=== PATIENT | female | born 1930 | race Caucasian/White ===

== ENCOUNTER 2016-09-03 06:01 | Inpatient (IN) | payer OTHER, MEDICARE ==
[~2016-09-03] VITALS: Ht 160 cm; Wt 101.2 kg
[2016-09-03] VITALS (16 sets, daily range): BP systolic 106–189; BP diastolic 52–79; PULSE 64–112; RESP 18–28; TEMP 97.6–99.5; O2SAT 92–100
[2016-09-03] MEDS ORDERED: GLIP-158 PO (06:23)
[2016-09-03] MEDS ORDERED: LOVA20TA PO (06:23)
[2016-09-03] MEDS ORDERED: GABA100C4 PO (06:23)
[2016-09-03] MEDS ORDERED: VERA120T3 PO (06:23)
[2016-09-03] MEDS ORDERED: METO50TA PO (06:23)
[2016-09-03] MEDS ORDERED: CAPT50TA PO (06:23)
[2016-09-03] MEDS ORDERED: OMEP20TA PO (06:23)
[2016-09-03] MEDS ORDERED: METF500T PO (06:23)
[2016-09-03] MEDS ORDERED: ONDANSETRON HCL 4 MG/2 ML VIAL IV PUSH ONE (06:30)
[2016-09-03] MEDS ORDERED: SODIUM CHLORIDE 0.9% FLUSH 5 ML FLUSH IVF PRN (06:30)
[2016-09-03] MEDS ORDERED: MORPHINE SULFATE 8 MG/ML INJ IV PUSH ONE (06:30)
--- NOTE | 2016-09-03 06:37 | PD ---
HPI Chief Complaint: Pain: Acute or Chronic Time Seen by Provider: 06:26 Travel History International Travel<30 days: No Contact w/Intl Traveler<30days: No Traveled to known affect area: No History of Present Illness HPI Patient is an 86-year-old female with a history of chronic low back pain presents to emergency department today with acute on chronic low back pain for the past 2 days. Patient states that she has been having severe pain and never had pain quite this severe in the past. Also endorses a history of nausea without vomiting and no belly pain. Patient has not tried anything prior to arrival denies any fever denies any chest pain denies any diarrhea. Denies any saddle anesthesia or leg weakness. She states she is able to walk when she is not having pain but hasn't walked in a day. She also states that she has pee on herself once or twice but can feel the urine and feels when she needs to pee. PFSH Past Medical History High Cholesterol: Yes Diabetes: Yes Patient Takes Glucophage: No GERD: Yes Hypertension: Yes Tetanus Vaccination: Unknown Influenza Vaccination: No ?: Not Menopausal: No : 2 Para: 2 Social History Alcohol Use: No Tobacco Use: No Substance Use: No Allergies-Medications (Allergen,Severity, Reaction): Coded Allergies: No Known Allergies (Unverified , 09/03/16) Reported Meds & Prescriptions Reported Meds & Active Scripts Active Reported Gabapentin 100 Mg Cap 100 Mg PO HS Omeprazole 20 Mg Tab 20 Mg PO DAILY Glipizide XL (Glipizide) 2.5 Mg Wilver 2.5 Mg PO DAILY Take with breakfast or first main meal of the day Lovastatin 20 Mg Tab 20 Mg PO DAILY Captopril 50 Mg Tab 50 Mg PO TIDAC Take 1 hour before meals. Verapamil (Verapamil HCl) 120 Mg Tab 240 Mg PO BID Metoprolol Tartrate 50 Mg Tab 50 Mg PO BID Metformin (Metformin HCl) 500 Mg Tab 500 Mg PO BIDPC With meals Review of Systems Except as stated in HPI: all other systems reviewed are Neg Physical Exam Narrative GENERAL: Well-developed, obese appears in moderate pain. SKIN: Warm and dry. HEAD: Atraumatic. Normocephalic. EYES: Pupils equal and round. No scleral icterus. No injection or drainage. ENT: No nasal bleeding or discharge. Mucous membranes pink and moist. NECK: Trachea midline. No JVD. CARDIOVASCULAR: Regular rate and rhythm. No murmur appreciated. RESPIRATORY: No accessory muscle use. Clear to auscultation. Breath sounds equal bilaterally. GASTROINTESTINAL: Abdomen soft, non-tender, nondistended. Hepatic and splenic margins not palpable. MUSCULOSKELETAL: No obvious deformities. No clubbing. No cyanosis. No edema. Able to dorsiflex and plantarflex against resistance. No midline tenderness of her back, she does have some tenderness of bilateral SI joints. NEUROLOGICAL: Awake and alert. No obvious cranial nerve deficits. Motor grossly within normal limits. Normal speech. PSYCHIATRIC: Appropriate mood and affect; insight and judgment normal. Data Data Last Documented VS Vital Signs Date Time Temp Pulse Resp B/P Pulse Ox O2 Delivery O2 Flow Rate FiO2 09/03/16 09:00 105 20 168/75 95 Nasal Cannula 2 09/03/16 06:12 99.5 Orders Electrocardiogram (09/03/16 06:26) Ckmb (Isoenzyme) Profile (09/03/16 06:26) Complete Blood Count With Diff (09/03/16 06:26) Comprehensive Metabolic Panel (09/03/16 06:26) Magnesium (Mg) (09/03/16 06:26) Prothrombin Time / Inr (Pt) (09/03/16 06:26) Act Partial Throm Time (Ptt) (09/03/16 06:26) Troponin I (09/03/16 06:26) Chest, Single Ap (09/03/16 06:26) Ecg Monitoring (09/03/16 06:26) Bilateral Bp Monitoring (09/03/16 06:26) Iv Access Insert/Monitor (09/03/16 06:26) Oximetry (09/03/16 06:26) Oxygen Administration (09/03/16 06:26) Sodium Chloride 0.9% Flush (Ns Flush) (09/03/16 06:30) Cta Thor Abd Aorta W Iv C W3d (09/03/16 ) Ct Lumb Spine W/O Contrast (09/03/16 ) Morphine Inj (Morphine Inj) (09/03/16 06:30) Ondansetron Inj (Zofran Inj) (09/03/16 06:30) Urinalysis - C+S If Indicated (09/03/16 07:11) ^ Straight Catheter (09/03/16 07:11) CKMB (09/03/16 06:25) CKMB% (09/03/16 06:25) Cath For Specimen (09/03/16 07:40) Iohexol 350 Inj (Omnipaque 350 Inj) (09/03/16 08:11) Vancomycin Inj (Vancomycin Inj) (09/03/16 08:30) Piperacil-Tazo 3.375 Gm Premix (Zosyn 3. (09/03/16 08:30) Piperacil-Tazo 4.5 Gm Premix (Zosyn 4.5 (09/03/16 08:30) Blood Culture (09/03/16 08:31) Urine Culture (09/03/16 08:00) Sodium Chlor 0.9% 1000 Ml Inj (Ns 1000 M (09/03/16 09:00) Lipase (09/03/16 08:48) Admit Order (Ed Use Only) (09/03/16 09:26) Us Abdomen Liver (09/03/16 ) Mri T Spine W & W/O Contrast (09/03/16 ) Mri L Spine W&W/O Contrast (09/03/16 ) Labs Laboratory Tests Test 09/03/16 09/03/16 06:25 08:00 White Blood Count 15.3 TH/MM3 Red Blood Count 5.83 MIL/MM3 Hemoglobin 15.1 GM/DL Hematocrit 45.8 % Mean Corpuscular Volume 78.5 FL Mean Corpuscular Hemoglobin 25.9 PG Mean Corpuscular Hemoglobin 33.0 % Concent Red Cell Distribution Width 19.3 % Platelet Count 148 TH/MM3 Mean Platelet Volume 9.6 FL Neutrophils (%) (Auto) 75.9 % Lymphocytes (%) (Auto) 18.2 % Monocytes (%) (Auto) 5.6 % Eosinophils (%) (Auto) 0.1 % Basophils (%) (Auto) 0.2 % Neutrophils # (Auto) 11.6 TH/MM3 Lymphocytes # (Auto) 2.8 TH/MM3 Monocytes # (Auto) 0.9 TH/MM3 Eosinophils # (Auto) 0.0 TH/MM3 Basophils # (Auto) 0.0 TH/MM3 CBC Comment AUTO DIFF Differential Total Cells 100 Counted Neutrophils % (Manual) 52 % Band Neutrophils % 21 % Lymphocytes % 22 % Monocytes % 4 % Neutrophils # (Manual) 11.3 TH/MM3 Metamyelocytes 1 % Nucleated Red Blood Cells 2 /100 WBC Differential Comment FINAL DIFF MANUAL Platelet Estimate NORMAL Platelet Morphology Comment NORMAL Ovalocytes Acanthocytes OCC Prothrombin Time 15.4 SEC Prothromb Time International 1.4 RATIO Ratio Activated Partial 28.5 SEC Thromboplast Time Sodium Level 138 MEQ/L Potassium Level 4.6 MEQ/L Chloride Level 104 MEQ/L Carbon Dioxide Level 17.7 MEQ/L Anion Gap 16 MEQ/L Blood Urea Nitrogen 25 MG/DL Creatinine 0.72 MG/DL Random Glucose 77 MG/DL Calcium Level 9.9 MG/DL Magnesium Level 2.1 MG/DL Total Bilirubin 1.1 MG/DL Aspartate Amino Transf 1489 U/L (AST/SGOT) Alanine Aminotransferase 544 U/L (ALT/SGPT) Alkaline Phosphatase 798 U/L Total Creatine Kinase 1697 U/L Creatine Kinase MB 2.6 NG/ML Creatine Kinase MB % 0.2 % Troponin I LESS THAN 0.02 NG/ML Total Protein 6.5 GM/DL Albumin 2.5 GM/DL Lipase 292 U/L Urine Color DARK-YELLOW Urine Turbidity HAZY Urine pH 5.5 Urine Specific [place] 1.023 Urine Protein TRACE mg/dL Urine Glucose (UA) NEG mg/dL Urine Ketones 10 mg/dL Urine Occult Blood MOD Urine Nitrite NEG Urine Bilirubin SMALL Urine Urobilinogen 8.0 MG/DL Urine Leukocyte Esterase NEG Urine RBC 2 /hpf Urine WBC 4 /hpf Urine Squamous Epithelial 1 /hpf Cells Urine Transitional Epithelial 1 /hpf Cells Urine Bacteria MANY /hpf Urine Hyaline Casts 17 /lpf Urine Mucus MOD /lpf Microscopic Urinalysis Comment CATH-CULTURE IND [facility] Medical Decision Making Medical Screen Exam Complete: Yes Emergency Medical Condition: Yes Differential Diagnosis Sacroiliitis, dissection seems possible ACS seems possible, pathologic fracture , cauda equina seems unlikely urinary tract infection. Narrative Course Patient appears well however she does have some small amount of diaphoresis on her neck only. She has not been in our emergency department for her back pain before. I have ordered CAT scans as well as laboratory workup on her. Heart rate is minimally elevated at this time otherwise her blood pressure stable. She is quite kind and comfortable. Medications have been ordered for her pain. Patient workup started in the emergency department, will be discussed with Dr. Walker the oncoming provider at to follow the workup and disposition appropriately. Dileep Holden MD Sep 03, 2016 06:37
--- NOTE | 2016-09-03 06:51 | RADRPT ---
EXAM DATE/TIME: 09/03/2016 06:37 [facility] COMPARISON: No previous studies available for comparison. INDICATIONS : Chest pains. MEDICAL HISTORY : Hypertension. Diabetes mellitus type II. SURGICAL HISTORY : None. ENCOUNTER: Initial ACUITY: 1 day PAIN SCORE: 4/10 LOCATION: Bilateral chest FINDINGS: A single view of the chest demonstrates the lungs to be symmetrically aerated without evidence of mas s, infiltrate or effusion. Cardiomegaly. The cardiomediastinal contours are unremarkable. Osseous s tructures are intact. CONCLUSION: Cardiomegaly with clear lungs. Joey Chavez MD on September 03, 2016 at 6:50 Board Certified Radiologist. This report was verified electronically.
[2016-09-03 06:52] LABS: AUTOMATED NEUTROPHIL # 11.6 TH/MM3 (1.8-7.7); BASOPHIL % 0.2 % (0.0-2.0); EOSINOPHIL % 0.1 % (0.0-4.0); HEMATOCRIT 45.8 % (35.0-46.0); LYMPH % 18.2 % (9.0-44.0); LYMPHOCYTE # 2.8 TH/MM3 (1.0-4.8); MEAN CELL VOLUME 78.5 FL (80.0-100.0); MEAN CORPUSCULAR HEMOGLOBIN 25.9 PG (27.0-34.0); MONO % 5.6 % (0.0-8.0); NEUT % 75.9 % (16.0-70.0); PLATELET COUNT 148 TH/MM3 (150-450); RED BLOOD COUNT 5.83 MIL/MM3 (4.00-5.30); RED CELL DISTRIBUTION WIDTH 19.3 % (11.6-17.2); WHITE BLOOD COUNT 15.3 TH/MM3 (4.0-11.0)
[2016-09-03 07:02] LABS: APTT (PATIENT) 28.5 SEC (24.3-30.1); INTERNATIONAL NORMALIZED RATIO 1.4 RATIO; PROTHROMBIN TIME - PATIENT 15.4 SEC (9.8-11.6)
[2016-09-03 07:08] LABS: HEMO FLAGS AUTO DIFF
[2016-09-03 07:15] LABS: ALT (GPT) 544 U/L (10-53); ANION GAP 16 MEQ/L (5-15); BICARBONATE 17.7 MEQ/L (21.0-32.0); BLOOD UREA NITROGEN 25 MG/DL (7-18); CHLORIDE 104 MEQ/L (98-107); MAGNESIUM 2.1 MG/DL (1.5-2.5); POTASSIUM 4.6 MEQ/L (3.5-5.1); SODIUM (NA) 138 MEQ/L (136-145)
[2016-09-03 07:28] LABS: ALKALINE PHOSPHATASE 798 U/L (45-117); AST (GOT) 1489 U/L (15-37); CREATINE KINASE 1697 U/L (26-192); TOTAL BILIRUBIN ADULT 1.1 MG/DL (0.2-1.0)
[2016-09-03 07:40] LABS: CKMB 2.6 NG/ML (0.5-3.6)
[2016-09-03 07:42] LABS: BANDS 21 % (0-6); CORRECTED NUCLEATED RBC 2 /100 WBC (0-0); METAMYELOCYTES 1 % (0-1); NEUTROPHIL # MANUAL DIFF 11.3 TH/MM3 (1.8-7.7); POLYS (SEG NEUTROPHILS) 52 % (16-70); WBC DIFF SAMPLE 100
[2016-09-03 07:43] LABS: ACANTHOCYTES OCC (NORMAL)
[2016-09-03 07:44] LABS: PLATELET ESTIMATE SMEAR NORMAL (NORMAL); PLATELET MORPHOLOGY NORMAL (NORMAL); SCAN/DIFF FINAL DIFF MANUAL
[2016-09-03] MEDS ORDERED: IOHEXOL 350 MG/ML 10 ML VIAL (for RAD DIAG) IV ONE (08:11)
[2016-09-03] MEDS ORDERED: VANCOMYCIN INJ 1,500 MG in SODIUM CHLORID 0.9% 500 ML INJ 500 ML IV ONE (08:30)
[2016-09-03] MEDS ORDERED: PIPERACIL-TAZO 3.375 GM PREMIX 50 ML IV ONE (08:30)
[2016-09-03] MEDS ORDERED: PIPERACIL-TAZO 4.5 GM PREMIX 100 ML IV ONE (08:30)
[2016-09-03 08:32] LABS: BACTERIA, URINE MANY /hpf; BLOOD, URINE MOD (NEG); COMMENT (UR) CATH-CULTURE IND; CULTURE IF INDICATED CATH CULTURE IND; GLUCOSE,URINE NEG (NEG); HYALINE CAST, URINE 17 /lpf (RARE); KETONE, URINE 10 mg/dL (NEG); MUCUS URINE MOD /lpf (OCC); NITRITE,URINE NEG (NEG); PH, URINE 5.5 (5.0-8.5); SQUAMOUS EPITHELIAL CELL URINE 1 /hpf (0-5); TRANSITIONAL EPI CELLS, URINE 1 /hpf; URINE COLOR DARK-YELLOW (YELLW/STRAW)
--- NOTE | 2016-09-03 08:38 | RADRPT ---
EXAM DATE/TIME: 09/03/2016 08:07 [facility] COMPARISON: No previous studies available for comparison. INDICATIONS : Acute low back pain with history of chronic low back pain. RADIATION DOSE: CTDIvol (mGy) ; Reconstructed from previous dataset MEDICAL HISTORY : Hypertension. Diabetes SURGICAL HISTORY : None. ENCOUNTER: Initial ACUITY: 2 days PAIN SCALE: 7/10 LOCATION: Bilateral low back TECHNIQUE: Volumetric scanning of the lumbar spine was performed. Multiplanar reconstructions in the sagittal, coronal and oblique axial planes were performed. Using automated exposure control and adjustment of the mA and/or kV according to patient size, radiation dose was kept as low as reasonably achievable t o obtain optimal diagnostic quality images. FINDINGS: VERTEBRAE: Normal vertebral body height. No fracture or compression deformity is identified. Small implant osteo phytes are present anteriorly at multiple levels. ALIGNMENT: No anterolisthesis or retrolisthesis. T12-L1: There is a mild diffuse disc bulge. No spinal canal stenosis or neural foraminal narrowing is appreci ated. L1-L2: There is a mild diffuse disc bulge. No spinal canal stenosis or neural foraminal narrowing is appreci ated. L2-L3: There is a mild diffuse disc bulge with mild facet hypertrophy. No spinal canal stenosis or significa nt neural foraminal narrowing is visualized. L3-L4: There is decreased disc height with a moderate sized diffuse disc bulge and mild facet hypertrophy. T he lateral recesses are effaced. No significant spinal canal stenosis is appreciated. There is mild r ight neural foraminal narrowing. L4-L5: There is mild decreased disc height with a diffuse disc bulge with partially mineralized disc bulge o n the left. Lateral recesses are effaced. There is mild facet hypertrophy. No spinal canal stenosis i s present. There is mild narrowing of neural foramina bilaterally. L5-S1: Decreased disc height with a diffuse disc bulge and moderate facet hypertrophy. No spinal canal steno sis is present. There is mild neural foraminal narrowing bilaterally.Please refer to CTA examination for description of the surrounding findings. CONCLUSION: Mild multilevel degenerative disc disease throughout the lumbar spine, as above. No spinal canal sten osis is identified. Also, no fracture is seen. There are is of mild neural foraminal narrowing. Ac Fermin MD on September 03, 2016 at 8:32 Board Certified Radiologist. This report was verified electronically.
--- NOTE | 2016-09-03 08:59 | RADRPT ---
EXAM DATE/TIME: 09/03/2016 08:07 [facility] COMPARISON: No previous studies available for comparison. INDICATIONS : Acute low back pain with history of chronic low back pain. IV CONTRAST: 99 cc Omnipaque 350 (iohexol) IV RADIATION DOSE: 17.01 CTDIvol (mGy) MEDICAL HISTORY : Hypertension. Diabetes SURGICAL HISTORY : None. ENCOUNTER: Initial ACUITY: 2 days PAIN SCALE: 7/10 LOCATION: Bilateral low back TECHNIQUE: Volumetric scanning was performed using a multi-row detector CT scanner. The data was post processed with a variety of visualization algorithms including full volume maximum intensity projection, multi -planar sliding thin slab reformation, curved planar reformation, and surface rendering techniques. Using automated exposure control and adjustment of the mA and/or kV according to patient size, radiat ion dose was kept as low as reasonably achievable to obtain optimal diagnostic quality images. FINDINGS: LUNGS: There is a small right pleural effusion with associated compressive atelectasis. No pneumothorax is p resent. MEDIASTINUM: There is a single mildly enlarged prevascular lymph node measuring 10 mm located anterior to the asce nding aorta. No other lymphadenopathy is present. The thyroid gland is enlarged with both lobes exten ding into the superior mediastinum and encasing and partially narrowing the trachea. ABDOMEN: Liver is very heterogeneously enhancing and is enlarged. No calcified gallstones are visualized. Adre nal glands demonstrate mildly thickened limbs. No definite mass is seen. The kidneys, spleen, and verdin creas demonstrate no acute finding. There are enlarged lymph nodes in the abdomen and pelvis with an enlarged gastrohepatic lymph node measuring 15 mm in short axis diameter and an enlarged hepatic debra ry lymph node measuring 15 mm in short axis diameter. There is also an enlarged aortocaval lymph node measuring 11 mm. A small volume of free fluid is present in the abdomen and pelvis. PELVIS: There are coarse calcifications in the uterus measuring 3.5 cm and 1.1 cm. Small volume of free fluid is present in the pelvis. There is sigmoid diverticulosis. THORACIC AORTA: There is mild atherosclerotic disease of the thoracic aorta. No aneurysm or dissection is present. ABDOMINAL AORTA: There is moderate atherosclerotic disease of the abdominal aorta and iliac arteries. No aneurysm or d issection is present. The celiac trunk and superior mesenteric artery have calcification near the ost ia but no significant stenosis is appreciated. The hepatic artery arises directly from the aorta. The re are patent single renal arteries bilaterally. The UTE is patent. PELVIC VESSELS: There is mild to moderate atherosclerotic disease of the pelvic arterial vasculature. No aneurysm or dissection is visualized. CONCLUSION: 1. Moderate atherosclerotic disease of aorta. No aneurysm or dissection is present. 2. Mild lymphadenopathy is visualized within the abdomen and mediastinum from an uncertain etiology. Suggest correlating with the clinical history and consider followup to ensure stability or resolution . 3. Small right pleural effusion with associated compressive atelectasis. There is also a small volume of free fluid within the abdomen and pelvis. 4. Hepatomegaly with very heterogeneous liver. This examination was not performed for detailed evalua tion of the liver. This appearance could be due to steatosis but I cannot exclude liver mass based on the appearance. 5. Nonacute findings include enlarged thyroid gland/thyromegaly, sigmoid diverticulosis, and calcifie d uterine fibroids. Ac Fermin MD on September 03, 2016 at 8:46 Board Certified Radiologist. This report was verified electronically.
[2016-09-03] MEDS ORDERED: SODIUM CHLOR 0.9% 1000 ML INJ 1,000 ML IV SCH ×2 (09:00→09:45)
--- NOTE | 2016-09-03 09:45 | PD ---
Data Data Last Documented VS Vital Signs Date Time Temp Pulse Resp B/P Pulse Ox O2 Delivery O2 Flow Rate FiO2 09/03/16 09:00 105 20 168/75 95 Nasal Cannula 2 09/03/16 06:12 99.5 Orders Electrocardiogram (09/03/16 06:26) Ckmb (Isoenzyme) Profile (09/03/16 06:26) Complete Blood Count With Diff (09/03/16 06:26) Comprehensive Metabolic Panel (09/03/16 06:26) Magnesium (Mg) (09/03/16 06:26) Prothrombin Time / Inr (Pt) (09/03/16 06:26) Act Partial Throm Time (Ptt) (09/03/16 06:26) Troponin I (09/03/16 06:26) Chest, Single Ap (09/03/16 06:26) Ecg Monitoring (09/03/16 06:26) Bilateral Bp Monitoring (09/03/16 06:26) Iv Access Insert/Monitor (09/03/16 06:26) Oximetry (09/03/16 06:26) Oxygen Administration (09/03/16 06:26) Sodium Chloride 0.9% Flush (Ns Flush) (09/03/16 06:30) Cta Thor Abd Aorta W Iv C W3d (09/03/16 ) Ct Lumb Spine W/O Contrast (09/03/16 ) Morphine Inj (Morphine Inj) (09/03/16 06:30) Ondansetron Inj (Zofran Inj) (09/03/16 06:30) Urinalysis - C+S If Indicated (09/03/16 07:11) ^ Straight Catheter (09/03/16 07:11) CKMB (09/03/16 06:25) CKMB% (09/03/16 06:25) Cath For Specimen (09/03/16 07:40) Iohexol 350 Inj (Omnipaque 350 Inj) (09/03/16 08:11) Vancomycin Inj (Vancomycin Inj) (09/03/16 08:30) Piperacil-Tazo 3.375 Gm Premix (Zosyn 3. (09/03/16 08:30) Piperacil-Tazo 4.5 Gm Premix (Zosyn 4.5 (09/03/16 08:30) Blood Culture (09/03/16 08:31) Urine Culture (09/03/16 08:00) Sodium Chlor 0.9% 1000 Ml Inj (Ns 1000 M (09/03/16 09:00) Lipase (09/03/16 08:48) Admit Order (Ed Use Only) (09/03/16 09:26) Us Abdomen Liver (09/03/16 ) Mri T Spine W & W/O Contrast (09/03/16 ) Mri L Spine W&W/O Contrast (09/03/16 ) Labs Laboratory Tests Test 09/03/16 09/03/16 06:25 08:00 White Blood Count 15.3 TH/MM3 Red Blood Count 5.83 MIL/MM3 Hemoglobin 15.1 GM/DL Hematocrit 45.8 % Mean Corpuscular Volume 78.5 FL Mean Corpuscular Hemoglobin 25.9 PG Mean Corpuscular Hemoglobin 33.0 % Concent Red Cell Distribution Width 19.3 % Platelet Count 148 TH/MM3 Mean Platelet Volume 9.6 FL Neutrophils (%) (Auto) 75.9 % Lymphocytes (%) (Auto) 18.2 % Monocytes (%) (Auto) 5.6 % Eosinophils (%) (Auto) 0.1 % Basophils (%) (Auto) 0.2 % Neutrophils # (Auto) 11.6 TH/MM3 Lymphocytes # (Auto) 2.8 TH/MM3 Monocytes # (Auto) 0.9 TH/MM3 Eosinophils # (Auto) 0.0 TH/MM3 Basophils # (Auto) 0.0 TH/MM3 CBC Comment AUTO DIFF Differential Total Cells 100 Counted Neutrophils % (Manual) 52 % Band Neutrophils % 21 % Lymphocytes % 22 % Monocytes % 4 % Neutrophils # (Manual) 11.3 TH/MM3 Metamyelocytes 1 % Nucleated Red Blood Cells 2 /100 WBC Differential Comment FINAL DIFF MANUAL Platelet Estimate NORMAL Platelet Morphology Comment NORMAL Ovalocytes Acanthocytes OCC Prothrombin Time 15.4 SEC Prothromb Time International 1.4 RATIO Ratio Activated Partial 28.5 SEC Thromboplast Time Sodium Level 138 MEQ/L Potassium Level 4.6 MEQ/L Chloride Level 104 MEQ/L Carbon Dioxide Level 17.7 MEQ/L Anion Gap 16 MEQ/L Blood Urea Nitrogen 25 MG/DL Creatinine 0.72 MG/DL Random Glucose 77 MG/DL Calcium Level 9.9 MG/DL Magnesium Level 2.1 MG/DL Total Bilirubin 1.1 MG/DL Aspartate Amino Transf 1489 U/L (AST/SGOT) Alanine Aminotransferase 544 U/L (ALT/SGPT) Alkaline Phosphatase 798 U/L Total Creatine Kinase 1697 U/L Creatine Kinase MB 2.6 NG/ML Creatine Kinase MB % 0.2 % Troponin I LESS THAN 0.02 NG/ML Total Protein 6.5 GM/DL Albumin 2.5 GM/DL Lipase 292 U/L Urine Color DARK-YELLOW Urine Turbidity HAZY Urine pH 5.5 Urine Specific [place] 1.023 Urine Protein TRACE mg/dL Urine Glucose (UA) NEG mg/dL Urine Ketones 10 mg/dL Urine Occult Blood MOD Urine Nitrite NEG Urine Bilirubin SMALL Urine Urobilinogen 8.0 MG/DL Urine Leukocyte Esterase NEG Urine RBC 2 /hpf Urine WBC 4 /hpf Urine Squamous Epithelial 1 /hpf Cells Urine Transitional Epithelial 1 /hpf Cells Urine Bacteria MANY /hpf Urine Hyaline Casts 17 /lpf Urine Mucus MOD /lpf Microscopic Urinalysis Comment CATH-CULTURE IND [facility] Supervised Visit with IN[facility]JIT: Yes Narrative Course This is a patient that was signed out to me by Dr. Holden coming in for weakness and low back pain. She's not been taking care of herself because her is on hospice. She has multiple lab abnormalities with a leukocytosis and a 20 % bandemia. I did give her broad-spectrum antibiotics and obtain cultures. She also has elevation in her AST, ALT, alkaline phosphatase and CK. CTA demonstrates heterogenous liver. I'm not sure what the etiology of this patient 's symptoms are but she certainly requires additional workup. Differential is broad and includes malignancy, myositis, hepatitis, and sepsis. I ordered an MRI of her thoracic and lumbar spine is her chief complaint is bilateral lower extremity weakness and I also ordered an ultrasound of the patient's liver. She will be admitted for continued antibiotics and IV hydration. I discussed the case with Dr. Boyd. Physician Communication Physician Communication Discussed with Dr. Boyd Diagnosis Primary Impression: Weakness Admitting Information Admitting Physician Requests: Admit Leatha Walker MD Sep 03, 2016 09:45
[2016-09-03] MEDS ORDERED: GLUCAGON 1 MG/ML VIAL OTHER PRN (10:00)
[2016-09-03] MEDS ORDERED: NALOXONE HCL 0.4 MG/ML AMP IV PRN (10:00)
[2016-09-03] MEDS ORDERED: RESP: ALBUTEROL 2.5 MG/IPRATROPIUM 0.5 MG NEB (PRN) NEB (10:00)
[2016-09-03] MEDS ORDERED: SENNOSIDES 8.6 MG TAB PO PRN (10:00)
[2016-09-03] MEDS ORDERED: ACETAMINOPHEN 325 MG TAB PO PRN ×2 (10:00)
[2016-09-03] MEDS ORDERED: DEXTROSE 50% IN WATER 50 ML VIAL(D50) IV PUSH PRN (10:00)
[2016-09-03] MEDS ORDERED: ENALAPRILAT 1.25 MG/ML VIAL IV PUSH PRN (10:00)
[2016-09-03] MEDS ORDERED: PILL SPLITTER OTHER PRN (10:15)
[2016-09-03] MEDS: INSULIN ASPART SUPPLEMENTAL SCALE SQ SCH ×3 (11:00→20:37)
[2016-09-03] MEDS ORDERED: GADODIAMIDE PF 287 MG/ML 20 ML VIAL (for RAD MRI) IV ONE (11:47)
[2016-09-03] MEDS ORDERED: ONDANSETRON HCL 4 MG/2 ML VIAL IVP PRN (12:00)
--- NOTE | 2016-09-03 12:00 | EKG ---
Date Performed: 09/03/2016 Time Performed: 06:19:35 PTAGE: 86 years EKG: SINUS TACHYCARDIA POSSIBLE LEFT ATRIAL ENLARGEMENT MARKED RIGHT AXIS DEVIATION RIGHT BUNDLE BRANCH BLOCK Compared to previous tracing, ST-T wave abnormalities are improved. ABNORMAL ECG PREVIOUS TRACING : 01/01/2004 14.18 DOCTOR: Austyn Kay Interpretating Date/Time 09/03/2016 11:59:30
[2016-09-03] MEDS: VERAPAMIL HCL 120 MG TAB PO SCH ×2 (12:01→20:37)
[2016-09-03] MEDS: SODIUM CHLOR 0.9% 1000 ML INJ 1,000 ML IV SCH ×2 (12:01→18:03)
--- NOTE | 2016-09-03 12:01 | PD.CONS ---
HPI History of Present Illness This is a 86 year old female patient who came to the er for evaluation of nausea and vomiting with back pain. She was noted to have significantly elevated LFTs with T. Bili 1.1, AST 1489, ALT 544, Alk Phosph 798. Aorta CTA ()----> 1. Moderate atherosclerotic disease of aorta. No aneurysm or dissection is present. 2. Mild lymphadenopathy is visualized within the abdomen and mediastinum from an uncertain etiology. Suggest correlating with the clinical history and consider followup to ensure stability or resolution. 3. Small right pleural effusion with associated compressive atelectasis. There is also a small volume of free fluid within the abdomen and pelvis. 4. Hepatomegaly with very heterogeneous liver. This examination was not performed for detailed evaluation of the liver. This appearance could be due to steatosis but I cannot exclude liver mass based on the appearance. 5. Nonacute findings include enlarged thyroid gland/thyromegaly, sigmoid diverticulosis, and calcified uterine fibroids. Of note, lipase was 292, CPK was 72847, AFP 2.3, CEA 4.5, Ca19-9 and Ca 125 pending. Acetaminophen level is pending, as is hepatitis panel and autoimmune markers. She reports that her is under hospice care and she has been sitting up, not eating. She has been having back pain for 3 weeks and has been taking Acetaminophen ii po BID for this. She does not drink any ETOH. No hx of liver disease. She denies any recent falls. She recently started a new anxiety medication because she has not been sleeping. She does not have this with her. She has been having nausea for 2 weeks. She has not had any vomiting. She takes omeprazole and does not have any heartburn with this, but does have some belching. She denies any abdominal pain. She denies any diarrhea, constipation, melena, or hematocheza. (Latonia Mcdaniels) PFSH Past Medical History Hyperlipidemia DM GERD HTN Past Surgical History Rhinoplasty Cardiac catheterization (Latonia Mcdaniles) Coded Allergies: No Known Allergies (Unverified , 09/03/16) Medications Allergies Coded Allergies Type Severity Reaction Last Updated Verified No Known Allergies 09/03/16 No Active Scripts Medications Dose Route/Sig Days Date Category Dose Instructions Gabapentin 100 Mg Cap 100 Mg PO HS 09/03/16 Reported Omeprazole 20 Mg Tab 20 Mg PO DAILY 09/03/16 Reported Glipizide XL (Glipizide) 2.5 Mg Wilver 2.5 Mg PO DAILY 09/03/16 Reported Take with breakfast or first main meal of the day Lovastatin 20 Mg Tab 20 Mg PO DAILY 09/03/16 Reported Captopril 50 Mg Tab 50 Mg PO TIDAC 09/03/16 Reported Take 1 hour before meals. Verapamil (Verapamil HCl) 120 Mg Tab 240 Mg PO BID 09/03/16 Reported Metoprolol Tartrate 50 Mg Tab 50 Mg PO BID 09/03/16 Reported Metformin (Metformin HCl) 500 Mg Tab 500 Mg PO BIDPC 09/03/16 Reported With meals Family History Mother had leukemia Social History No tobacco, etoh, or illicit drug use. is currently under hospice care at the hospice care center in [facility]. Pt has been at his bedside, not moving, not eating for several days (Latonia Mcdaniels) Review of Systems Constitutional: COMPLAINS OF: Fatigue, Change in appetite, DENIES: Fever, Chills Respiratory: DENIES: Shortness of breath Cardiovascular: DENIES: Chest pain Gastrointestinal: COMPLAINS OF: Nausea, Anorexia, DENIES: Abdominal pain, Black stools, Bloody stools, Constipation, Diarrhea, Vomiting, Swelling of Abdomen, Heartburn, Hematemesis Musculoskeletal: COMPLAINS OF: Back pain, DENIES: Muscle aches Hematologic/lymphatic: DENIES: Bruising Neurologic: DENIES: Headache Psychiatric: COMPLAINS OF: Anxiety, Depression (Latonia Mcdaniels) GI Exam Vitals I&O Vital Signs Date Time Temp Pulse Resp B/P Pulse Ox O2 Delivery O2 Flow Rate FiO2 09/03/16 11:31 100 24 189/79 95 09/03/16 09:00 105 20 168/75 95 Nasal Cannula 2 09/03/16 07:30 102 20 160/70 96 Nasal Cannula 2 09/03/16 06:12 99.5 112 18 176/74 92 Imaging Last Impressions Chest X-Ray 09/03/16 0626 Signed Impressions: Service Date/Time: August 06:37 - CONCLUSION: Cardiomegaly with clear lungs. Joey Chavez MD Lumbar Spine CT 09/03/16 0000 Signed Impressions: Service Date/Time: August 08:07 - CONCLUSION: Mild multilevel degenerative disc disease throughout the lumbar spine, as above. No spinal canal stenosis is identified. Also, no fracture is seen. There are is of mild neural foraminal narrowing. Ac Fermin MD Aorta CTA 09/03/16 0000 Signed Impressions: Service Date/Time: August 08:07 - CONCLUSION: 1. Moderate atherosclerotic disease of aorta. No aneurysm or dissection is present. 2. Mild lymphadenopathy is visualized within the abdomen and mediastinum from an uncertain etiology. Suggest correlating with the clinical history and consider followup to ensure stability or resolution. 3. Small right pleural effusion with associated compressive atelectasis. There is also a small volume of free fluid within the abdomen and pelvis. 4. Hepatomegaly with very heterogeneous liver. This examination was not performed for detailed evaluation of the liver. This appearance could be due to steatosis but I cannot exclude liver mass based on the appearance. 5. Nonacute findings include enlarged thyroid gland/thyromegaly , sigmoid diverticulosis, and calcified uterine fibroids. Ac Fermin MD Laboratory Test 09/03/16 09/03/16 09/03/16 06:25 08:00 10:30 White Blood Count 15.3 TH/MM3 Red Blood Count 5.83 MIL/MM3 Hemoglobin 15.1 GM/DL Hematocrit 45.8 % Mean Corpuscular Volume 78.5 FL Mean Corpuscular Hemoglobin 25.9 PG Mean Corpuscular Hemoglobin 33.0 % Concent Red Cell Distribution Width 19.3 % Platelet Count 148 TH/MM3 Mean Platelet Volume 9.6 FL Neutrophils (%) (Auto) 75.9 % Lymphocytes (%) (Auto) 18.2 % Monocytes (%) (Auto) 5.6 % Eosinophils (%) (Auto) 0.1 % Basophils (%) (Auto) 0.2 % Neutrophils # (Auto) 11.6 TH/MM3 Lymphocytes # (Auto) 2.8 TH/MM3 Monocytes # (Auto) 0.9 TH/MM3 Eosinophils # (Auto) 0.0 TH/MM3 Basophils # (Auto) 0.0 TH/MM3 CBC Comment AUTO DIFF Differential Total Cells 100 Counted Neutrophils % (Manual) 52 % Band Neutrophils % 21 % Lymphocytes % 22 % Monocytes % 4 % Neutrophils # (Manual) 11.3 TH/MM3 Metamyelocytes 1 % Nucleated Red Blood Cells 2 /100 WBC Differential Comment FINAL DIFF MANUAL Platelet Estimate NORMAL Platelet Morphology Comment NORMAL Ovalocytes Acanthocytes OCC Prothrombin Time 15.4 SEC Prothromb Time International 1.4 RATIO Ratio Activated Partial 28.5 SEC Thromboplast Time Sodium Level 138 MEQ/L Potassium Level 4.6 MEQ/L Chloride Level 104 MEQ/L Carbon Dioxide Level 17.7 MEQ/L Anion Gap 16 MEQ/L Blood Urea Nitrogen 25 MG/DL Creatinine 0.72 MG/DL Random Glucose 77 MG/DL Calcium Level 9.9 MG/DL Magnesium Level 2.1 MG/DL Total Bilirubin 1.1 MG/DL Aspartate Amino Transf 1489 U/L (AST/SGOT) Alanine Aminotransferase 544 U/L (ALT/SGPT) Alkaline Phosphatase 798 U/L Total Creatine Kinase 1697 U/L Creatine Kinase MB 2.6 NG/ML Creatine Kinase MB % 0.2 % Troponin I LESS THAN 0.02 NG/ML Total Protein 6.5 GM/DL Albumin 2.5 GM/DL Lipase 292 U/L Urine Color DARK-YELLOW Urine Turbidity HAZY Urine pH 5.5 Urine Specific Stuart 1.023 Urine Protein TRACE mg/dL Urine Glucose (UA) NEG mg/dL Urine Ketones 10 mg/dL Urine Occult Blood MOD Urine Nitrite NEG Urine Bilirubin SMALL Urine Urobilinogen 8.0 MG/DL Urine Leukocyte Esterase NEG Urine RBC 2 /hpf Urine WBC 4 /hpf Urine Squamous Epithelial 1 /hpf Cells Urine Transitional Epithelial 1 /hpf Cells Urine Bacteria MANY /hpf Urine Hyaline Casts 17 /lpf Urine Mucus MOD /lpf Microscopic Urinalysis Comment CATH-CULTURE IND Tumor Marker Alpha Fetoprotein 2.3 NG/ML Carcinoembryonic Antigen 4.5 NG/ML Date/Time Procedure Status Source Growth 09/03/16 09:00 Aerobic Blood Culture Received Blood Peripheral Pending 09/03/16 09:00 Anaerobic Blood Culture Received Blood Peripheral Pending 09/03/16 08:00 Urine Culture Received Urine Catheterized Urine Pending Physical Examination HEENT: Normocephalic; atraumatic; no jaundice. CHEST: CTA CARDIAC: RRR ABDOMEN: Soft, obese, nondistended, nontender; no hepatosplenomegaly; bowel sounds are present in all four quadrants. EXTREMITIES: BLE edema. SKIN: Normal; no rash; no jaundice. PROFESSOR OF SPANISH: No focal deficits; lethargic and oriented times three. (Latonia Mcdaniels MEDIA SERVICES SPECIALIST) Assessment and Plan Plan ASSESSMENT: - Acute hepatitis, unclear etiology at this point. No hx of liver disease or etoh abuse. Her b/p is hypertensive at this time. She has been at her 's bedside at the [facility] for several days and her family reports that she has not even been getting up to eat. She has back pain for several weeks and has been taking Acetaminophen 2 tabs BID. Only other new med is an unknown med for anxiety. Of note, she is obese with a hx of DM and could likely have some underlying fatty liver disease. She was also noted to have rhabdomyolysis and it is very likely that this is contributing to her liver enzyme derangement with her AST>ALT. Aorta CTA (09/03/16)----> 1. Moderate atherosclerotic disease of aorta. No aneurysm or dissection is present. 2. Mild lymphadenopathy is visualized within the abdomen and mediastinum from an uncertain etiology. Suggest correlating with the clinical history and consider followup to ensure stability or resolution. 3. Small right pleural effusion with associated compressive atelectasis. There is also a small volume of free fluid within the abdomen and pelvis. 4. Hepatomegaly with very heterogeneous liver. This examination was not performed for detailed evaluation of the liver. This appearance could be due to steatosis but I cannot exclude liver mass based on the appearance. 5. Nonacute findings include enlarged thyroid gland/thyromegaly, sigmoid diverticulosis, and calcified uterine fibroids. 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 Of note, lipase was 292, CPK [place] 22342, AFP 2.3, CEA 4.5, Ca19-9 and Ca 125 pending. LFTs with T. Bili 1.1, AST 1489, ALT 544, Alk Phosph 798. Acetaminophen level is pending, as is hepatitis panel and autoimmune markers. 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 AFP 2.3, CEA 4.5, Ca19-9 218.3, Ca 125 104. - Rhabdomyolysis. IVF per primary. - Leukocytosis, WBC 15.3. - Nonspecific eleavation of Ca19-9 218.3, Ca 125 104. - GERD/Belching. PPI - Back pain. - DM, HTN, Anxiety. Per primary PLAN: - Clear liquids - IVF - Await hepatitis - Await IGNACIO, ASMA, AMA - Await Ceruloplasmin - Iron Saturation, Ferritin level - Consider liver biopsy - Consider oncology evaluation - Avoid hepatotoxins - Monitor LFTs, CPK - Supportive care - Further recommendations to follow based on results of above - Pt seen and examined by Dr. Donis and myself and this note is written on his behalf (Latonia Mcdaniels) Physician Comments Patient was seen and examined Agree with above Continue with current supportive care Monitor labs Most likely cause of liver function abnormalities is liver metastases most likely patient has underlying malignancy with metastases to the bone in the liver We will await biopsy results (Rosalino Donis MD) Latonia Mcdaniels Sep 03, 2016 12:01 Rosalino Donis MD Sep 03, 2016 19:05
[2016-09-03] MEDS: CAPTOPRIL 50 MG TAB PO SCH ×2 (12:02→17:00)
[2016-09-03] MEDS: METOPROLOL TARTRATE 50 MG TAB PO SCH ×2 (12:10→20:38)
--- NOTE | 2016-09-03 12:12 | RADRPT ---
EXAM DATE/TIME: 09/03/2016 10:58 This report includes an Addendum and supersedes previous reports for this exam. [facility] COMPARISON: CT LUMBAR SPINE W/O CONTRAST, September 03, 2016, 8:07. INDICATIONS : Weakness. CONTRAST: 20 cc Omniscan (gadodiamide) IV MEDICAL HISTORY : Diabetes mellitus type 2. Chronic obstructive pulmonary disease. Hypertension. SURGICAL HISTORY : Coronary artery stent. Skin cancer removed from nose. ENCOUNTER: Subsequent ACUITY: 1 day PAIN SCORE: 6/10 LOCATION: mid back. TECHNIQUE: Multiplanar multisequence MRI of the lumbar spine was performed with and without contrast. FINDINGS: The most caudal appearing lumbar vertebra is numbered as L5. VERTEBRAE: Bone marrow signal is heterogeneous and demonstrates abnormal decreased signal on T1 without any thanh esponding increased T2 signal. There is mild height loss at the superior endplate of T12 but there is no associated edema. There is no anterolisthesis or retrolisthesis. CONUS: Normal level and configuration. POST CONTRAST: No abnormal areas of contrast enhancement are seen. T12-L1: No disc herniation, canal stenosis, or neural foraminal stenosis. There is mild facet and ligamentum flavum hypertrophy. L1-L2: No disc herniation, canal stenosis, or neural foraminal stenosis. There is mild facet and ligamentum flavum hypertrophy. L2-L3: There is a mild to moderate diffuse disc bulge, largest in a left paracentral location. There is also mild facet and ligamentum flavum hypertrophy. No spinal canal stenosis or neural foraminal narrowing is present. L3-L4: There is decreased disc height with disc desiccation and a moderate-sized diffuse disc bulge, largest in the left paracentral location. The disc bulge mildly displaces the left paracentral nerve roots. There is also facet and ligamentum flavum hypertrophy. No spinal canal stenosis or neural foraminal n arrowing is present. L4-L5: There is disc desiccation with decreased disc height and there is a diffuse disc bulge. There is mode rate facet hypertrophy. No spinal canal stenosis or neural foraminal narrowing is present. L5-S1: There is just desiccation with decreased disc height and there is facet hypertrophy. No spinal canal stenosis or neural foraminal narrowing is present. The visualized paraspinous structures demonstrate no acute finding. CONCLUSION: 1. Multilevel degenerative disc disease at L2-L3 through L5-S1, as above. No area of significant spin al canal stenosis or neural foraminal narrowing is visualized. 2. Abnormal bone marrow signal. The lack of change on the T2 sequence suggests against an infiltrativ e process. Suggest correlation with clinical history for anemia. Ac Fermin MD on September 03, 2016 at 12:00 Board Certified Radiologist. This report was verified electronically. ADDENDUM: After reviewing the thoracic spine MRI it is clear that the abnormal bone marrow signal is more suspi cious for an infiltrative process including malignancy. The thoracic spine MRI demonstrated innumerab le liver lesions suspicious for metastatic disease. Ac Fermin MD on September 03, 2016 at 13:10 Board Certified Radiologist. This report was verified electronically.
[2016-09-03 12:18] LABS: ACETAMINOPHEN LESS THAN 2.0 MCG/ML (10.0-30.0); LDH SERUM 7972 U/L (84-246)
--- NOTE | 2016-09-03 13:02 | RADRPT ---
EXAM DATE/TIME: 09/03/2016 10:06 [facility] COMPARISON: CTA THORACIC ABDOMINAL AORTA W 3D RECON, September 03, 2016, 8:07. INDICATIONS : Increased lab values. MEDICAL HISTORY : Hypercholesterolemia. Hypertension. Gastroesophageal reflux disease. Diabetes. SURGICAL HISTORY : Unable to obtain. ENCOUNTER: Initial ACUITY: 1 day PAIN SCORE: 0/10 LOCATION: Abdomen. MEASUREMENTS: LIVER: 25.0 cm length COMMON DUCT: Non-visualized RIGHT KIDNEY: 12.6 x 5.7 x 6.0 cm SPLEEN: 11.0 cm length FINDINGS: LIVER: Innumerable liver masses of varying sizes are present involving right and left lobes. The liver is gl obally enlarged. There is small volume of free fluid adjacent to the liver edge. COMMON DUCT: No intraluminal mass or stone visualized. GALLBLADDER: Contains no stones, demonstrates no wall thickening or pericholecystic fluid. PANCREAS: The visualized portions are within normal limits. RIGHT KIDNEY: No hydronephrosis, stone or mass. SPLEEN: No focal lesion. 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 Ac Nair MD on September 03, 2016 at 12:56 Board Certified Radiologist. This report was verified electronically.
--- NOTE | 2016-09-03 13:12 | RADRPT ---
EXAM DATE/TIME: 09/03/2016 10:58 [facility] COMPARISON: MRI LUMBAR SPINE W & W/O CONTRAST, September 03, 2016, 10:58. INDICATIONS : Weakness. CONTRAST: 20 cc Omniscan (gadodiamide) IV MEDICAL HISTORY : Diabetes mellitus type 2. Chronic obstructive pulmonary disease. Hypertension. SURGICAL HISTORY : Coronary artery stent. Skin cancer removed from nose. ENCOUNTER: Subsequent ACUITY: 1 day PAIN SCORE: 6/10 LOCATION: mid back. TECHNIQUE: Multiplanar multisequence MRI of the thoracic spine was performed. FINDINGS: VERTEBRA: There is abnormal heterogeneous bone marrow signal with associated increased T2 signal and heterogene ous enhancement. No focal specific bone lesion is appreciated. ALIGNMENT: No anterolisthesis or retrolisthesis. CORD: Normal position and configuration. POST CONTRAST: No abnormal areas of contrast enhancement seen. T1-T2: No disc herniation, canal stenosis, or neural foraminal stenosis. T2-T3: No disc herniation, canal stenosis, or neural foraminal stenosis. T3-T4: No disc herniation, canal stenosis, or neural foraminal stenosis. T4-T5: No disc herniation, canal stenosis, or neural foraminal stenosis. There is increased T2 signal with e nhancement within the disc. The endplates are intact. T5-T6: No disc herniation, canal stenosis, or neural foraminal stenosis. T6-T7: There is a small right paracentral disc protrusion. No canal stenosis or neural foraminal stenosis is present. T7-T8: There is a small left paracentral disc protrusion. No canal stenosis or neural foraminal stenosis is present. T8-T9: No disc herniation, canal stenosis, or neural foraminal stenosis. T9-T10: No disc herniation, canal stenosis, or neural foraminal stenosis. T10-T11: No disc herniation, canal stenosis, or neural foraminal stenosis. T11-T12: No disc herniation, canal stenosis, or neural foraminal stenosis. T12-L1: No disc herniation, canal stenosis, or neural foraminal stenosis. The visualized portions of the liver contain innumerable T2 hyperintense lesions. There is a small ri ght pleural effusion. In the superior mediastinum there is an enlarged thyroid gland. CONCLUSION: 1. Diffusely abnormal bone marrow signal suspicious for infiltrative process including lymphoma or ma lignancy. 2. Innumerable lesions are present in the visualized portions of the liver suspicious for metastatic disease. 3. Mild degenerative change of the thoracic spine but no significant spinal canal stenosis or neural foraminal stenosis is present. 4. Abnormally enlarged and heterogeneous thyroid gland extending into the superior mediastinum. Ac Fermin MD on September 03, 2016 at 13:06 Board Certified Radiologist. This report was verified electronically.
--- NOTE | 2016-09-03 13:15 | HHI.HP ---
[facility] Primary Care Physician Brittany Rice M.D. Admission Diagnosis weakness Diagnoses: (1) Transaminitis (2) Rhabdomyolysis (3) Back pain with right-sided radiculopathy (4) Back pain with left-sided radiculopathy (5) Back pain (6) Liver masses (7) Sepsis (8) UTI (urinary tract infection) Chief Complaint: Back pain with radiculopathy Travel History International Travel<30 Days: No Contact w/Intl Traveler <30 Da: No Traveled to Known Affected Are: No Sepsis Criteria SIRS Criteria (2 or more): Heart rate over 90, WBC > 93212, < 4000 or > 10% bands Sepsis Criteria (SIRS+source): Infect source susp/known Criteria Outcome: Meets sepsis criteria History of Present Illness 86 year-old female with a history of hypertension, diabetes type 2 and prior nasal basal cell carcinoma came to the ED for evaluation of an acute on worsening chronic back pain with bilateral radiculopathy however without any bladder or bowel dysfunction, despite patient having nausea and vomiting.. She rates the pain 10 out of 10 in intensity and for the past several days has been taking acetaminophen 2 tablets by mouth twice a day as a result of which patient now has elevated LFTs with T. Bili 1.1, AST 1489, ALT 544, Alk Phosph 798. Patient denies any history of alcohol abuse. she denies any GI bleed, hematochezia or melena Review of Systems Other Other 12 systems are negative except for the one reviewed in the history of present illness Past Family Social History Past Medical History Hyperlipidemia DM GERD HTN Past Surgical History Rhinoplasty Cardiac catheterization Reported Medications Gabapentin 100 Mg Cap 100 Mg PO HS Omeprazole 20 Mg Tab 20 Mg PO DAILY Glipizide XL (Glipizide) 2.5 Mg Wilver 2.5 Mg PO DAILY Take with breakfast or first main meal of the day Lovastatin 20 Mg Tab 20 Mg PO DAILY Captopril 50 Mg Tab 50 Mg PO TIDAC Take 1 hour before meals. Verapamil (Verapamil HCl) 120 Mg Tab 240 Mg PO BID Metoprolol Tartrate 50 Mg Tab 50 Mg PO BID Metformin (Metformin HCl) 500 Mg Tab 500 Mg PO BIDPC With meals Allergies: Coded Allergies: No Known Allergies (Unverified , 09/03/16) Family History Mother had leukemia Social History No tobacco, etoh, or illicit drug use. Physical Exam Vital Signs Vital Signs Date Time Temp Pulse Resp B/P Pulse Ox O2 Delivery O2 Flow Rate FiO2 09/03/16 11:31 100 24 189/79 95 09/03/16 09:00 105 20 168/75 95 Nasal Cannula 2 09/03/16 07:30 102 20 160/70 96 Nasal Cannula 2 09/03/16 06:12 99.5 112 18 176/74 92 Physical Exam GENERAL: This is a well-nourished, well-developed patient, in no apparent distress. SKIN: No rashes, ecchymoses or lesions. Cool and dry. HEAD: Atraumatic. Normocephalic. No temporal or scalp tenderness. EYES: Pupils equal round and reactive. Extraocular motions intact. No scleral icterus. No injection or drainage. ENT: Nose without bleeding, purulent drainage or septal hematoma. Throat without erythema, tonsillar hypertrophy or exudate. Uvula midline. Airway patent. NECK: Trachea midline. No JVD or lymphadenopathy. Supple, nontender, no meningeal signs. CARDIOVASCULAR: Regular rate and rhythm without murmurs, gallops, or rubs. RESPIRATORY: Clear to auscultation. Breath sounds equal bilaterally. No wheezes , rales, or rhonchi. GASTROINTESTINAL: Abdomen soft, non-tender, nondistended. No hepato-splenomegaly , or palpable masses. No guarding. MUSCULOSKELETAL: Extremities without clubbing, cyanosis, or edema. No joint tenderness, effusion, or edema noted. No calf tenderness. Negative Homans sign bilaterally. NEUROLOGICAL: Awake and alert. Cranial nerves II through XII intact. Motor and sensory grossly within normal limits. Five out of 5 muscle strength in all muscle groups. Normal speech. Laboratory Laboratory Tests Test 09/03/16 09/03/16 09/03/16 06:25 08:00 10:30 White Blood Count 15.3 Red Blood Count 5.83 Hemoglobin 15.1 Hematocrit 45.8 Mean Corpuscular Volume 78.5 Mean Corpuscular Hemoglobin 25.9 Mean Corpuscular Hemoglobin 33.0 Concent Red Cell Distribution Width 19.3 Platelet Count 148 Mean Platelet Volume 9.6 Neutrophils (%) (Auto) 75.9 Lymphocytes (%) (Auto) 18.2 Monocytes (%) (Auto) 5.6 Eosinophils (%) (Auto) 0.1 Basophils (%) (Auto) 0.2 Neutrophils # (Auto) 11.6 Lymphocytes # (Auto) 2.8 Monocytes # (Auto) 0.9 Eosinophils # (Auto) 0.0 Basophils # (Auto) 0.0 CBC Comment AUTO DIFF Differential Total Cells 100 Counted Neutrophils % (Manual) 52 Band Neutrophils % 21 Lymphocytes % 22 Monocytes % 4 Neutrophils # (Manual) 11.3 Metamyelocytes 1 Nucleated Red Blood Cells 2 Differential Comment FINAL DIFF MANUAL Platelet Estimate NORMAL Platelet Morphology Comment NORMAL Ovalocytes Acanthocytes OCC Prothrombin Time 15.4 Prothromb Time International 1.4 Ratio Activated Partial 28.5 Thromboplast Time Sodium Level 138 Potassium Level 4.6 Chloride Level 104 Carbon Dioxide Level 17.7 Anion Gap 16 Blood Urea Nitrogen 25 Creatinine 0.72 Random Glucose 77 Calcium Level 9.9 Magnesium Level 2.1 Total Bilirubin 1.1 Aspartate Amino Transf 1489 (AST/SGOT) Alanine Aminotransferase 544 (ALT/SGPT) Alkaline Phosphatase 798 Total Creatine Kinase 1697 Creatine Kinase MB 2.6 Creatine Kinase MB % 0.2 Troponin I LESS THAN 0.02 Total Protein 6.5 Albumin 2.5 Lipase 292 Urine Color DARK-YELLOW Urine Turbidity HAZY Urine pH 5.5 Urine Specific [place] 1.023 Urine Protein TRACE Urine Glucose (UA) NEG Urine Ketones 10 Urine Occult Blood MOD Urine Nitrite NEG Urine Bilirubin SMALL Urine Urobilinogen 8.0 Urine Leukocyte Esterase NEG Urine RBC 2 Urine WBC 4 Urine Squamous Epithelial 1 Cells Urine Transitional Epithelial 1 Cells Urine Bacteria MANY Urine Hyaline Casts 17 Urine Mucus MOD Microscopic Urinalysis Comment CATH-CULTURE IND Lactate Dehydrogenase 7972 Tumor Marker Alpha Fetoprotein 2.3 Carcinoembryonic Antigen 4.5 CA 19-9 Antigen 218.3 CA 125 Antigen 104.0 Acetaminophen Level LESS THAN 2.0 Date/Time Procedure Status Source Growth 09/03/16 09:00 Aerobic Blood Culture Received Blood Peripheral Pending 09/03/16 09:00 Anaerobic Blood Culture Received Blood Peripheral Pending 09/03/16 08:00 Urine Culture Received Urine Catheterized Urine Pending Result Diagram: 09/03/1662409/03/16 0625 Imaging Last Impressions Chest X-Ray 09/03/16 0626 Signed Impressions: Service Date/Time: August 06:37 - CONCLUSION: Cardiomegaly with clear lungs. Joey Chavez MD Lumbar Spine MRI 09/03/16 0000 Signed Impressions: Service Date/Time: , September 03, 2016 10:58 - CONCLUSION: 1. Multilevel degenerative disc disease at L2-L3 through L5-S1, as above. No area of significant spinal canal stenosis or neural foraminal narrowing is visualized. 2. Abnormal bone marrow signal. The lack of change on the T2 sequence suggests against an infiltrative process. Suggest correlation with clinical history for anemia. Ac Fermin MD Lumbar Spine CT 09/03/16 0000 Signed Impressions: Service Date/Time: , September 03, 2016 08:07 - CONCLUSION: Mild multilevel degenerative disc disease throughout the lumbar spine, as above. No spinal canal stenosis is identified. Also, no fracture is seen. There are is of mild neural foraminal narrowing. 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 Ac Nair MD Aorta CTA 09/03/16 0000 Signed Impressions: Service Date/Time: , September 03, 2016 08:07 - CONCLUSION: 1. Moderate atherosclerotic disease of aorta. No aneurysm or dissection is present. 2. Mild lymphadenopathy is visualized within the abdomen and mediastinum from an uncertain etiology. Suggest correlating with the clinical history and consider followup to ensure stability or resolution. 3. Small right pleural effusion with associated compressive atelectasis. There is also a small volume of free fluid within the abdomen and pelvis. 4. Hepatomegaly with very heterogeneous liver. This examination was not performed for detailed evaluation of the liver. This appearance could be due to steatosis but I cannot exclude liver mass based on the appearance. 5. Nonacute findings include enlarged thyroid gland/thyromegaly , sigmoid diverticulosis, and calcified uterine fibroids. Ac Fermin MD Assessment and Plan Problem List: (1) Back pain ICD Code: M54.9 Status: Acute (2) Back pain with left-sided radiculopathy ICD Code: M54.10 Status: Acute (3) Back pain with right-sided radiculopathy ICD Code: M54.10 Status: Acute (4) Rhabdomyolysis ICD Code: M62.82 Status: Acute (5) Transaminitis ICD Code: R74.0 Status: Acute (6) Sepsis ICD Code: A41.9 Status: Acute Assessment and Plan 86-year-old female with Acute on chronic back pain: Patient with abnormal spine lumbar MRI noted and reviewed by me with finding of lack of change on the T2 sequence suggests against an infiltrative process. 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 Therefore will check tumor markers. Will consult interventional radiology for possible CT guided biopsy. Check CT chest, CT abdomen/pelvic. We'll also consult Medical Oncology as patient with prior history of basal cell carcinoma and now possible metastasis so far with unknown origin. Palliative care medicine has been consulted. Pain management accordingly. PT consult to treat and eval Sepsis:Heart rate over 90, WBC > 48883, < 4000 or > 10% bands; will check lactic acid. Source likely UTI; status post vancomycin and Zosyn in ED, continue Zosyn UTI: Currently on Zosyn pending urine culture Transaminitis: Patient with abnormal Liver US. Gastroenterology has been consulted. Check hepatitis panel, tumor markers, GI labs. Monitor LFTs Rhabdomyolysis: Aggressive IV fluid resuscitations and monitor CK Hyperlipidemia: Hold statin Hypertension: Resume outpatient medications including captopril, Lopressor, verapamil Diabetes type 2: Hold oral hypoglycemic agent, start medium sliding scale insulin with fingerstick blood glucose monitoring. Check hemoglobin A1c DVT prophylaxis: Bilateral SCDs Code Status Full code Discussed Condition With Patient, ED physician, granddaughter, daughter Physician Certification 2 Midnight Certification Type: Admission for Inpatient Services Order for Inpatient Services The services are ordered in accordance with Medicare regulations or non- Medicare payer requirements, as applicable. In the case of services not specified as inpatient-only, they are appropriately provided as inpatient services in accordance with the 2-midnight benchmark. Estimated LOS (days): 2 days is the estimated time the patient will need to remain in the hospital, assuming treatment plan goals are met and no additional complications. Post-Hospital Plan: Not yet determined Joey Boyd MD Sep 03, 2016 13:15
[2016-09-03] MEDS ORDERED: MORPHINE SULFATE 4 MG/ML INJ IV PUSH ONE (16:15)
--- NOTE | 2016-09-03 16:57 | PD.CONS ---
Consult Service Palliative Care . Consult Requested By Dr. Boyd . Primary Care Physician Brittany Rice M.D. . Reason for Consultation a. To assist with evaluation and management of symptoms including: pain, nausea b. To assist medical decision maker(s) with: better understanding of current medical conditions; weighing benefits/burdens of medical treatment options; making medical treatment decisions. . (Laly Adam) HPI History of Present Illness Ms. Cazares is an 86 year old female presenting to [facility] ED on 09/03/16 for evaluation of weakness and acute on chronic lower back pain with bilateral radiculopathy. Patient reported never experiencing pain so severe. Pain rated 10 out of 10. She has had worsening back pain for 3 weeks and has been taking acetaminophen 2 tablets PO 2 time daily. Patient endorses a 2 week history of nausea without vomiting. Denies abdominal pain. She has been at her significant others bedside at the [facility] for several days, and the patient's family reports she has not been eating. Diagnostic finding while in the ED: * Vital signs: Pulse 112, respirations 18, BP 176/74, oxygen saturation 92% on room air, oral temperature 99.5 * WBC: 15.3, hemoglobin 15.1, hematocrit 45.8, platelets 148, neutrophils 75.9% * Sodium: 138, potassium 4.6, chloride 104, carbon dioxide 17.7, calcium 9.9, magnesium 2.1, glucose 77 * BUN: 25, creatinine 0.72 * Total bilirubin 1.1, AST 1489, ALT 544, alkaline phosphatase 798 * Total creatine kinase: 1697 * CK-MB: 2.6 * Troponin: <0.02 * Total protein: 6.5, albumin 2.5 * Lactate hydrogenase: 7972 * Lipase: 292 * Lactic acid: 5.7 * Tumor marker AFP: 2.3 * Carcinoembryonic A.5 * CA 19-9 Antigen: 218.3 * CA 125 Antigen: 104.0 * PT: 15.4, INR 1.4, APTT 28.5 * Urinalysis: + blood and bacteria. Urine culture pending. * Thoracic spine MRI: Diffusely abnormal bone marrow signal suspicious for infiltrative process including lymphoma or malignancy, innumerable lesions are present in the visualized portion of the liver suspicious for metastatic disease , mild degenerative changes at this thoracic spine but no significant spinal canal stenosis or neural foraminal stenosis is present, abnormally large and heterogeneous thyroid gland extending into the superior mediastinum. * Lumbar spine MRI: Multilevel degenerative disc disease at L2-L3 through L5-S1 , no area of significant spinal canal stenosis are neural foraminal narrowing visualized. * Lumbar spine CT: Mild multilevel degenerative disc disease throughout the lumbar spine, no spinal canal stenosis identified, no fracture seen, mild neural foraminal noted. 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 * Aorta CTA: Moderate arteriosclerotic disease of aorta, no aneurysm or dissection is present. Mild lymphadenopathy is visualized within the abdomen and mediastinum from an uncertain etiology, suggest correlating with clinical history and consider following up to ensure stability or resolution. Small right pleural effusion with associated compressive atelectasis, there is also a small volume of free fluid within the abdomen/pelvis. Hepatomegaly with very heterogeneous liver, appearance could be due to steatosis but can not exclude liver mass based on the appearance. Nonacute findings included enlarged thyroid gland/thyromegaly, sigmoid diverticulosis, and calcified uterine fibroids. * Chest x-ray: Cardiomegaly with clear lungs. Gastroenterology was consulted. Palliative Care was consulted to assist with symptom management and to discuss with the family the benefits and burdens of her current illnesses and the options regarding future care. . (Laly Adam) Function/Cognitive Trajectory Patient has had trajectory of decline dated back a few months with most significant decline in the past few weeks. She was unable to get up out of recliner to bathroom. She was eating only bites and sips. She was unable to dress herself due to severe back pain. . (CORDELIA MATSON-C) Review of Systems Constitutional: COMPLAINS OF: Fatigue, Weight loss, Change in appetite ( decreased), Pain, Generalized weakness Respiratory: COMPLAINS OF: Shortness of breath Cardiovascular: COMPLAINS OF: Chest pain, Dyspnea on Exertion Gastrointestinal: COMPLAINS OF: Nausea, Vomiting, Dyspepsia or heartburn Musculoskeletal: COMPLAINS OF: Joint pain, Back pain, Decreased range of motion Hematologic/Lymphatics: COMPLAINS OF: Bruising, Lymphadenopathy (on CT) Neurologic: COMPLAINS OF: Paresthesias (LE peripheral neuropathy), Poor Balance Psychiatric: COMPLAINS OF: Anxiety, Depression (CORDELIA MATSON) Past Family Social History Coded Allergies: No Known Allergies (Unverified , 09/03/16) Past Surgical History Rhinoplasty Cardiac catheterization . Reported Medications Gabapentin 100 Mg Cap 100 Mg PO HS Omeprazole 20 Mg Tab 20 Mg PO DAILY Glipizide XL (Glipizide) 2.5 Mg Wilver 2.5 Mg PO DAILY Take with breakfast or first main meal of the day Lovastatin 20 Mg Tab 20 Mg PO DAILY Captopril 50 Mg Tab 50 Mg PO TIDAC Take 1 hour before meals. Verapamil (Verapamil HCl) 120 Mg Tab 240 Mg PO BID Metoprolol Tartrate 50 Mg Tab 50 Mg PO BID Metformin (Metformin HCl) 500 Mg Tab 500 Mg PO BIDPC With meals . Current Medications Medications (Trade) Dose Ordered Sig/Chloe Route Start Time Stop Time Status Last Admin IV Flush 2 ml 2 ml UNSCH PRN IVF 09/03/16 06:30 (NS 1000 ml Inj) 1,000 ml @ 150 mls/hr Q6H40M IV 09/03/16 09:52 09/03/16 12:01 (NS Flush) 2 ml UNSCH PRN FLUSH 09/03/16 10:00 (NS Flush) 2 ml BID FLUSH 09/03/16 21:00 (Tylenol) 650 mg Q4H PRN PO 09/03/16 10:00 (Zofran Inj) 4 mg Q6H PRN IVP 09/03/16 12:00 09/03/16 13:18 (Senokot) 17.2 mg Q12HR PRN PO 09/03/16 10:00 (Tylenol) 650 mg Q6H PRN PO 09/03/16 10:00 (Narcan Inj) 0.4 mg UNSCH PRN IV 09/03/16 10:00 (D50w (Vial) Inj) 25 ml UNSCH PRN IV PUSH 09/03/16 10:00 (Glucagon Inj) 1 mg UNSCH PRN OTHER 09/03/16 10:00 (Vasotec Inj) 1.25 mg Q6H PRN IV PUSH 09/03/16 10:00 (Capoten) 50 mg TIDAC PO 09/03/16 12:00 09/03/16 12:02 (Neurontin) 100 mg HS PO 09/03/16 21:00 (Lopressor) 50 mg BID PO 09/03/16 10:00 09/03/16 12:10 (Protonix) 20 mg DAILY PO 09/04/16 09:00 (Isoptin) 240 mg BID PO 09/03/16 10:00 09/03/16 12:01 (Glucotrol) 2.5 mg DAILYAC PO 09/04/16 08:00 Miscellaneous 1 ea 1 ea UNSCH PRN OTHER 09/03/16 10:15 (Zosyn 3.375 Gm Premix) 50 ml @ 100 mls/hr Q8H IV 09/03/16 17:00 (Morphine Inj) 2 mg Q6H PRN IV PUSH 09/03/16 13:45 . Family History Mother had leukemia . Substance Use Tobacco: None known Alcohol: None known Prescription med abuse: None known Illicits: None known . (Laly Adam) Past Medical History Hyperlipidemia DM GERD HTN Basal cell carcinoma (nasal) Severe peripheral neuropathy Arthritis CAD COPD . (CORDELIA MATSON) Physical Exam Vital Signs Date Time Temp Pulse Resp B/P Pulse Ox O2 Delivery O2 Flow Rate FiO2 09/03/16 15:10 67 25 112/59 100 BiPAP 100 09/03/16 15:00 100 BiPAP 100 09/03/16 15:00 100 100 09/03/16 14:50 68 28 106/60 95 Non-Rebreather 15 Automatic Cuff 09/03/16 14:00 78 25 109/52 94 Nasal Cannula 3 09/03/16 13:10 64 24 110/57 94 Nasal Cannula 2 09/03/16 11:31 100 24 189/79 95 09/03/16 10:00 96 22 179/79 94 Nasal Cannula 2 09/03/16 09:00 105 20 168/75 95 Nasal Cannula 2 09/03/16 07:30 102 20 160/70 96 Nasal Cannula 2 09/03/16 06:12 99.5 112 18 176/74 92 . . (Laly Adam) Exam CONSTITUTIONAL/GENERAL: This is an adequately nourished patient, with labored respirations on BiPAP TUBES/LINES/DRAINS: BiPAP, PIV. SKIN: No jaundice, rashes, or lesions. Ecchymoses on upper extremities. No wounds seen anteriorly. Skin temperature appropriate. Not diaphoretic. HEAD: Atraumatic. Normocephalic. EYES: Pupils equal and round and reactive. Extraocular motions intact. No scleral icterus. No injection or drainage. Fundi not examined. ENT: Hearing grossly normal. Nose without bleeding or purulent drainage. Unable to assess throat due to BiPAP. NECK: Trachea midline. Supple, nontender. No palpable thyroid enlargement or nodularity. CARDIOVASCULAR: Regular rate and rhythm without murmurs, gallops, or rubs. No JVD. Peripheral pulses symmetric. RESPIRATORY/CHEST: Symmetric, labored respirations on BiPAP. Clear to auscultation. Breath sounds diminished bilaterally. GASTROINTESTINAL: Abdomen soft, non-tender, distended. No guarding. Bowel sounds present. GENITOURINARY: Without palpable bladder distension. Gonzalez catheter in place. MUSCULOSKELETAL: Extremities without clubbing, cyanosis, or edema. No joint tenderness or effusion noted. No calf tenderness. No mottling or clubbing. LYMPHATICS: No palpable cervical or supraclavicular adenopathy. NEUROLOGICAL: Awake and alert. Motor and sensory grossly within normal limits. Follows commands. Cognitively sharp. Moves all extremities. PSYCHIATRIC: No obvious anxiety/depression. no apparent hallucinations or other psychotic thought process. . (CORDELIA MATSON [facility]-) Diagnostic Tests Laboratory Laboratory Tests Test 09/03/16 09/03/16 09/03/16 09/03/16 06:25 08:00 10:30 14:10 White Blood Count 15.3 TH/MM3 (4.0-11.0) Red Blood Count 5.83 MIL/MM3 (4.00-5.30) Hemoglobin 15.1 GM/DL (11.6-15.3) Hematocrit 45.8 % (35.0-46.0) Mean Corpuscular Volume 78.5 FL (80.0-100.0) Mean Corpuscular Hemoglobin 25.9 PG (27.0-34.0) Mean Corpuscular Hemoglobin 33.0 % Concent (32.0-36.0) Red Cell Distribution Width 19.3 % (11.6-17.2) Platelet Count 148 TH/MM3 (150-450) Mean Platelet Volume 9.6 FL (7.0-11.0) Neutrophils (%) (Auto) 75.9 % (16.0-70.0) Lymphocytes (%) (Auto) 18.2 % (9.0-44.0) Monocytes (%) (Auto) 5.6 % (0.0-8.0) Eosinophils (%) (Auto) 0.1 % (0.0-4.0) Basophils (%) (Auto) 0.2 % (0.0-2.0) Neutrophils # (Auto) 11.6 TH/MM3 (1.8-7.7) Lymphocytes # (Auto) 2.8 TH/MM3 (1.0-4.8) Monocytes # (Auto) 0.9 TH/MM3 (0-0.9) Eosinophils # (Auto) 0.0 TH/MM3 (0-0.4) Basophils # (Auto) 0.0 TH/MM3 (0-0.2) CBC Comment AUTO DIFF Differential Total Cells 100 Counted Neutrophils % (Manual) 52 % (16-70) Band Neutrophils % 21 % (0-6) Lymphocytes % 22 % (9-44) Monocytes % 4 % (0-8) Neutrophils # (Manual) 11.3 TH/MM3 (1.8-7.7) Metamyelocytes 1 % (0-1) Nucleated Red Blood Cells 2 /100 WBC (0-0) Differential Comment FINAL DIFF MANUAL Platelet Estimate NORMAL (NORMAL) Platelet Morphology Comment NORMAL (NORMAL) Ovalocytes (NORMAL) Acanthocytes OCC (NORMAL) Prothrombin Time 15.4 SEC (9.8-11.6) Prothromb Time International 1.4 RATIO Ratio Activated Partial 28.5 SEC Thromboplast Time (24.3-30.1) Sodium Level 138 MEQ/L (136-145) Potassium Level 4.6 MEQ/L (3.5-5.1) Chloride Level 104 MEQ/L (98-107) Carbon Dioxide Level 17.7 MEQ/L (21.0-32.0) Anion Gap 16 MEQ/L (5-15) Blood Urea Nitrogen 25 MG/DL (7-18) Creatinine 0.72 MG/DL (0.50-1.00) Random Glucose 77 MG/DL (74-106) Calcium Level 9.9 MG/DL (8.5-10.1) Magnesium Level 2.1 MG/DL (1.5-2.5) Total Bilirubin 1.1 MG/DL (0.2-1.0) Aspartate Amino Transf 1489 U/L (AST/SGOT) (15-37) Alanine Aminotransferase 544 U/L (10-53) (ALT/SGPT) Alkaline Phosphatase 798 U/L (45-117) Total Creatine Kinase 1697 U/L (26-192) Creatine Kinase MB 2.6 NG/ML (0.5-3.6) Creatine Kinase MB % 0.2 % (0.0-4.0) Troponin I LESS THAN 0.02 NG/ML (0.02-0.05) Total Protein 6.5 GM/DL (6.4-8.2) Albumin 2.5 GM/DL (3.4-5.0) Lipase 292 U/L (73-393) Urine Color DARK-YELLOW (YELLW/STRAW) Urine Turbidity HAZY (CLEAR) Urine pH 5.5 (5.0-8.5) Urine Specific [place] 1.023 (1.002-1.035) Urine Protein TRACE mg/dL (NEG-TRACE) Urine Glucose (UA) NEG mg/dL (NEG) Urine Ketones 10 mg/dL (NEG) Urine Occult Blood MOD (NEG) Urine Nitrite NEG (NEG) Urine Bilirubin SMALL (NEG) Urine Urobilinogen 8.0 MG/DL (LESS THAN 2.0) Urine Leukocyte Esterase NEG (NEG) Urine RBC 2 /hpf (0-3) Urine WBC 4 /hpf (0-5) Urine Squamous Epithelial 1 /hpf (0-5) Cells Urine Transitional Epithelial 1 /hpf (NONE) Cells Urine Bacteria MANY /hpf (NONE) Urine Hyaline Casts 17 /lpf (RARE) Urine Mucus MOD /lpf (OCC) Microscopic Urinalysis Comment CATH-CULTURE IND Lactate Dehydrogenase 7972 U/L (84-246) Tumor Marker Alpha Fetoprotein 2.3 NG/ML (0.5-8.0) Carcinoembryonic Antigen 4.5 NG/ML (0.2-5.0) CA 19-9 Antigen 218.3 U/ML (0.0-35.0) CA 125 Antigen 104.0 U/ML (0.0-30.2) Acetaminophen Level LESS THAN 2.0 MCG/ML (10.0-30.0) Hepatitis A IgM Antibody NEGATIVE (NEGATIVE) Hepatitis B Surface Antigen NEGATIVE (NEGATIVE) Hepatitis B Core IgM Antibody NEGATIVE (NEGATIVE) Hepatitis C Antibody NEGATIVE (NEGATIVE) Lactic Acid Level 5.7 mmol/L (0.4-2.0) . (Laly Adam) Result Diagram: 09/03/1625 09/03/16624 Microbiology Microbiology Date/Time Procedure Status Source Growth 09/03/16 08:00 Urine Culture Received Urine Catheterized Urine Pending 09/03/16 08:55 Aerobic Blood Culture Received Blood Peripheral Pending 09/03/16 08:55 Anaerobic Blood Culture Received Blood Peripheral Pending 09/03/16 09:00 Aerobic Blood Culture Received Blood Peripheral Pending 09/03/16 09:00 Anaerobic Blood Culture Received Blood Peripheral Pending . Imaging Last 72 hours Impressions Chest X-Ray 09/03/16625 Signed Impressions: Service Date/Time: August 06:37 - CONCLUSION: Cardiomegaly with clear lungs. Joey Chavez MD Thoracic Spine MRI 09/03/16 0000 Signed Impressions: Service Date/Time: August 10:58 - CONCLUSION: 1. Diffusely abnormal bone marrow signal suspicious for infiltrative process including lymphoma or malignancy. 2. Innumerable lesions are present in the visualized portions of the liver suspicious for metastatic disease. 3. Mild degenerative change of the thoracic spine but no significant spinal canal stenosis or neural foraminal stenosis is present. 4. Abnormally enlarged and heterogeneous thyroid gland extending into the superior mediastinum. Ac Fermin MD Lumbar Spine MRI 09/03/16 0000 Signed Impressions: Service Date/Time: August 10:58 - CONCLUSION: 1. Multilevel degenerative disc disease at L2-L3 through L5-S1, as above. No area of significant spinal canal stenosis or neural foraminal narrowing is visualized. 2. Abnormal bone marrow signal. The lack of change on the T2 sequence suggests against an infiltrative process. Suggest correlation with clinical history for anemia. Ac Fermin MD ADDENDUM: After reviewing the thoracic spine MRI it is clear that the abnormal bone marrow signal is more suspicious for an infiltrative process including malignancy. The thoracic spine MRI demonstrated innumerable liver lesions suspicious for metastatic disease. Ac Fermin MD Lumbar Spine CT 09/03/16 0000 Signed Impressions: Service Date/Time: August 08:07 - CONCLUSION: Mild multilevel degenerative disc disease throughout the lumbar spine, as above. No spinal canal stenosis is identified. Also, no fracture is seen. There are is of mild neural foraminal narrowing. 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 Ac Nair MD Aorta CTA 09/03/16 0000 Signed Impressions: Service Date/Time: August 08:07 - CONCLUSION: 1. Moderate atherosclerotic disease of aorta. No aneurysm or dissection is present. 2. Mild lymphadenopathy is visualized within the abdomen and mediastinum from an uncertain etiology. Suggest correlating with the clinical history and consider followup to ensure stability or resolution. 3. Small right pleural effusion with associated compressive atelectasis. There is also a small volume of free fluid within the abdomen and pelvis. 4. Hepatomegaly with very heterogeneous liver. This examination was not performed for detailed evaluation of the liver. This appearance could be due to steatosis but I cannot exclude liver mass based on the appearance. 5. Nonacute findings include enlarged thyroid gland/thyromegaly , sigmoid diverticulosis, and calcified uterine fibroids. Ac Fermin MD . (Laly Adam) Patient/Family Conference Present at Family Conference: Met with patient and then family including Natalie (granddaughter/HCS), Russ ( Natalie SO), Keri (dtr), Bill (son), Shanelle (DIL), Sudheer (grandson), Amrita ( great granddaughter). Family Conference Time (mins): 75 Family Conference Location: Bedside, Consult Room Issues Discussed: * Palliative care role, purpose, approach * Additional medical, psychosocial, and spiritual history * Patients general health, functional status, and cognitive changes in the months leading up to the current hospitalization * Patient/family understanding of the current medical problems * Patient/family understanding of prognosis * Patients goals of care as best understood from advance directives and/or conversations and/or values * Current medical treatment options and benefits/burdens of those options * Likely scenarios comparing ongoing aggressive care with a transition to comfort measures only * Questions answered to the best of my ability * Palliative care contact information provided Patient desires NO CODE (DNR/DNI). She wants to think about whether or not she wants further testing (imaging/ liver biopsy) until AM before making further decisions. Family supports her her decisions. Family understands she has what looks like an advanced cancer and that she is not likely a candidate for treatment given her significant recent trajectory of decline. They would like to speak with oncologist also. (CORDELIA MATSON) Assessment and Plan Disease Oriented Problem List: (1) Rhabdomyolysis (2) Sepsis (3) UTI (urinary tract infection) (4) Transaminitis (5) Back pain with left-sided radiculopathy (6) Back pain with right-sided radiculopathy (7) Liver masses (8) HTN (hypertension) (9) GERD (gastroesophageal reflux disease) (10) Hyperlipidemia (11) Diabetes (12) Weakness Symptom Scale: (1) Nausea (2) Back pain Code Status: Full Code (Laly Adma) Important Contacts Natalie Barnes, grand-daughter/ HCS: [phone] or [phone] Mayte Cazares (son/DIL) [phone] Devonte, grandson: [phone] or [phone] Candy Barnes, grand-daughter: [phone] Code Status: No Code Plan * Patient designated her granddaughter Natalie Bonilla as [facility] care surrogate should she become in capacitated. She is currently capacitate to make her own decisions. * NO CODE (DNR/DNI) per pt wishes. * Patient desires NO CODE (DNR/DNI). She wants to think about whether or not she wants further testing (imaging/ liver biopsy) until AM before making further decisions. Family supports her her decisions. Family understands she has what looks like an advanced cancer and that she is not likely a candidate for treatment given her significant recent trajectory of decline. Family desires adequate pain and symptom management. They would like to speak with oncologist also. * This patient is known to palliative care service as we met her last week when her significant other was admitted to ICU. He is now a patient in the hospice care center actively dying. * Discussed with Dr. Walker, Dr. Boyd and Dr. Amaya. * Will further clarify goals in AM. * Palliative care number provided. * Palliative care will continue to follow to assist with symptom management. ( CORDELIA MATSON) Thank you for the opportunity to participate in the care of Ms. Cazares. . (Laly Adam) Attestation To help prompt me to consider important information that might be impacting today's encounter and assessment, information from prior notes written by myself or my colleagues may have been "brought forward" into today's note. My signature on this note, however, is an attestation that I personally performed the exam, history, and/or decision-making noted today, and, unless otherwise indicated, the interactions with patient, family, and staff as well as the review of records all occurred today. I also attest that the listed assessment and stated plan reflect my best clinical judgment today based on the combination of historical information, prior notes, and today's exam/ interactions. When time spent is documented, it refers only to time spent today by the signer, or if indicated, combined time spent today by collaborating physician/nurse practitioner. . (Laly Adam) Laly Adam Sep 03, 2016 16:44 CORDELIA MATSON Sep 03, 2016 17:45 (12) Weakness Symptom Scale: (1) Nausea (2) Back pain Pertinent Non-Medical Issues Psychosocial: Spiritual: Legal: Ethical issues impacting care: Important Contacts Natalie Barnes, grand-daughter: [phone] Candy Barnes, grand-daughter: [phone] . Code Status: Full Code (Laly Adam) Important Contacts Natalie Barnes, grand-daughter/ HCS: [phone] or [phone] Mayte Cazares (son/DIL) [phone] Devonte, grandson: [phone] or [phone] Candy Barnes, grand-daughter: [phone] Code Status: No Code Plan * Patient designated her granddaughter Natalie Bonilla as [facility] care surrogate should she become in capacitated. She is currently capacitate to make her own decisions. * NO CODE (DNR/DNI) per pt wishes. * Patient desires NO CODE (DNR/DNI). She wants to think about whether or not she wants further testing (imaging/ liver biopsy) until AM before making further decisions. Family supports her her decisions. Family understands she has what looks like an advanced cancer and that she is not likely a candidate for treatment given her significant recent trajectory of decline. Family desires adequate pain and symptom management. They would like to speak with oncologist also. * This patient is known to palliative care service as we met her last week when her significant other was admitted to ICU. He is now a patient in the hospice care center actively dying. * Discussed with Dr. Walker, Dr. Boyd and Dr. Amaya. * Will further clarify goals in AM. * Palliative care number provided. * Palliative care will continue to follow to assist with symptom management. ( CORDELIA MATSON) Thank you for the opportunity to participate in the care of Ms. Cazares. . (Laly Adam) Attestation To help prompt me to consider important information that might be impacting today's encounter and assessment, information from prior notes written by myself or my colleagues may have been "brought forward" into today's note. My signature on this note, however, is an attestation that I personally performed the exam, history, and/or decision-making noted today, and, unless otherwise indicated, the interactions with patient, family, and staff as well as the review of records all occurred today. I also attest that the listed assessment and stated plan reflect my best clinical judgment today based on the combination of historical information, prior notes, and today's exam/ interactions. When time spent is documented, it refers only to time spent today by the signer, or if indicated, combined time spent today by collaborating physician/nurse practitioner. . (Laly Adam) Laly Adam Sep 03, 2016 16:44 CORDELIA MATSON Sep 03, 2016 17:45
[2016-09-03] MEDS: PIPERACIL-TAZO 3.375 GM PREMIX 50 ML IV SCH (18:04)
--- NOTE | 2016-09-03 20:26 | MB ---
cc: MARISOL FOX M.D. DATE OF CONSULTATION: 09/03/2016. REASON FOR CONSULTATION: Oncology was consulted to render opinion regarding a patient with possible metastatic cancer. ATTENDING PHYSICIAN: Dr. Boyd. HISTORY OF PRESENT ILLNESS: The patient is an 86-year-old female with history of basal cell carcinoma of the skin, diabetes mellitus and hypertension who presented to the hospital with a complaint of intense back pain. When I saw her, she had had pain medication and was a little drowsy. History was obtained from her granddaughter at the bedside. Apparently the patient has not been doing very well since her became ill and went to hospice recently. She was taking care of him and since he went to hospice the patient has declined rapidly. She has lost about 20 pounds since December. She has chronic back pain and leg pain from neuropathy. However, this past Wednesday, she had intense low back pain and was not able to walk because of the pain. She also has had nausea and abdominal pain all over for the last few days. She has no complaint of fever. She did feel cold. She has decreased appetite. She has had mild increase in shortness of breath. Denies any cough. Denies any headache. Denies any focal weakness. She denies any change in urinary habits. When she presented the hospital, MRI showed diffuse bone marrow changes suspicious for bony metastasis. She was also noted to have numerous liver lesions suggestive of metastatic disease. PAST MEDICAL HISTORY: 1. Hypertension. 2. Diabetes mellitus. 3. Basal cell carcinoma of her left nares. 4. Hyperlipidemia. 5. Gastroesophageal reflux disease. PAST SURGICAL HISTORY: 1. Rhinoplasty. 2. Cardiac catheterization. FAMILY HISTORY: One son and one daughter, both healthy. SOCIAL HISTORY: Smoker but quit 30 years ago. Denies alcohol use. ALLERGIES: NO KNOWN DRUG ALLERGIES. CURRENT MEDICATIONS" 1. Protonix. 2. Glucotrol. 3. Zosyn. 4. Captopril. 5. Metoprolol. 6. Verapamil. REVIEW OF SYSTEMS: CONSTITUTIONAL: She has had a 20 pound weight loss, increased weakness. EYES: Denies any blurry vision or double vision. ENT: Denies any mouth sores or voice changes. CARDIOVASCULAR: Denies any chest pressure or palpitations. RESPIRATORY: Slight increased shortness of breath. Denies any cough. GI: As above. : Denies any dysuria or hematuria. MUSCULOSKELETAL: As above. HEMATOLOGIC: Negative. ENDOCRINE: Negative. DERMATOLOGIC: Negative. PSYCHIATRIC: Negative. NEUROLOGIC: She has chronic neuropathy. PHYSICAL EXAMINATION: VITAL SIGNS: 99.5 temperature, blood pressure 128/57, 02 saturation 95% on nonrebreather. GENERAL: She is a little drowsy. A little bit confused. She is obese. HEAD, EYES, EARS, NOSE, THROAT: Atraumatic, normocephalic. Pupils equal, round, reactive to light. Extraocular muscles intact. No scleral icterus. OROPHARYNX: Dry mucosa. No lesions. NECK: No thyromegaly. No palpable mass. LYMPHATIC: No palpable cervical, clavicular, axillary or inguinal lymph nodes. CARDIOVASCULAR: Regular S1 and S2. No murmur. LUNGS: Clear to auscultation anteriorly. ABDOMEN: Abdomen is a little distended. I could feel the firm mass in the liver. It is a little tender in the right upper quadrant and mid-epigastric area. EXTREMITIES: 1+ ankle edema. No calf tenderness. SKIN: No rash or petechiae. NEUROLOGIC EXAM: She is a little confused and drowsy after the pain medicine. LABORATORY DATA: Reviewed. ASSESSMENT: 1. Multiple liver masses with bone lesions most consistent with metastatic disease. She had presented with increased low back pain and abdominal pain. According to the patient's granddaughter, the patient only started complaining of symptoms after her was admitted to hospice last weekend. She had an MRI of the spine that showed diffuse abnormal bone marrow signal suspicious for infiltrative process. No clear compression fracture noted. The MRI also showed multiple liver lesions which is confirmed with ultrasound. The tumor marker CA 19-9 and CA-125 were elevated but nonspecific. I have had an extensive discussion with the patient's granddaughter. She told me that when the patient was alert and awake this afternoon she told the family that she does not want to be too aggressive and she will talk more about it tomorrow morning. The patient's family; however, have decided that they only want comfort care at this point. They do not want aggressive workup or a biopsy. They think that since the patient's was admitted to hospice, she has not been doing well and will likely not want to have any treatment, even if she was found to have cancer. As such, I am not going to do any further workup and I would recommend hospice care once the patient and family make their final decision. 2. Hypertension. 3. Diabetes mellitus. 4. History of basal cell carcinoma of the skin. RECOMMENDATIONS: 1. Extensive discussion with the patient's granddaughter and they do not want aggressive workup or biopsy. 2. Recommend hospice consult once the patient and family are able to have a discussion. Thank you, Dr. Boyd, for asking me to see this patient. MD DANNY Solis/JCFreedom /7:18 PM /8:06 PM MTDLuis
[2016-09-03] MEDS ORDERED: SODIUM CHLORIDE 0.9% FLUSH 5 ML FLUSH FLUSH SCH (21:00)
[2016-09-03] MEDS ORDERED: GABAPENTIN 100 MG CAP PO SCH (21:00)
[2016-09-03] MEDS ORDERED: CHLORHEXIDINE GLUCONATE 2 % 1 PACK (2 CLOTHS)(extra cloths) TOP PRN (22:00)
[2016-09-03] MEDS: SODIUM CHLORIDE 0.9% FLUSH 5 ML FLUSH FLUSH PRN (22:15)
[2016-09-03] MEDS: MORPHINE SULFATE 4 MG/ML INJ IV PUSH PRN (22:15)
[2016-09-04] VITALS: BP 140/65; PULSE 78; RESP 26; TEMP 98.2; O2SAT 94
[2016-09-04] MEDS: PIPERACIL-TAZO 3.375 GM PREMIX 50 ML IV SCH (00:16)
[2016-09-04] MEDS: SODIUM CHLOR 0.9% 1000 ML INJ 1,000 ML IV SCH ×2 (00:16→05:52)
[2016-09-04 02:00] VITALS: PULSE 79
[2016-09-04 04:00] VITALS: BP 139/62; PULSE 84; RESP 29; TEMP 97.6; O2SAT 87
[2016-09-04] MEDS ORDERED: CHLORHEXIDINE GLUCONATE 2 % 1 PACK (2 CLOTHS)(taper/protocol) TOP SCH (04:00)
[2016-09-04] MEDS: MORPHINE SULFATE 4 MG/ML INJ IV PUSH PRN (04:09)
[2016-09-04] MEDS: SODIUM CHLORIDE 0.9% FLUSH 5 ML FLUSH FLUSH PRN ×2 (04:09→06:14)
[2016-09-04 06:00] VITALS: PULSE 96
[2016-09-04] MEDS ORDERED: MORPHINE SULFATE 4 MG/ML INJ IV PUSH PRN (06:00)
[2016-09-04] MEDS: INSULIN ASPART SUPPLEMENTAL SCALE SQ SCH (06:12)
[2016-09-04 06:13] LABS: AUTOMATED NEUTROPHIL # 11.5 TH/MM3 (1.8-7.7); BASOPHIL % 0.2 % (0.0-2.0); EOSINOPHIL # 0.1 TH/MM3 (0-0.4); EOSINOPHIL % 0.6 % (0.0-4.0); HEMATOCRIT 40.9 % (35.0-46.0); LYMPH % 20.9 % (9.0-44.0); LYMPHOCYTE # 3.3 TH/MM3 (1.0-4.8); MEAN CELL VOLUME 80.3 FL (80.0-100.0); MEAN CORPUSCULAR HEMOGLOBIN 25.4 PG (27.0-34.0); MEAN CORPUSCULAR HGB CONC 31.6 % (32.0-36.0); MONO % 6.2 % (0.0-8.0); NEUT % 72.1 % (16.0-70.0); PLATELET COUNT 101 TH/MM3 (150-450); RED BLOOD COUNT 5.09 MIL/MM3 (4.00-5.30); RED CELL DISTRIBUTION WIDTH 19.8 % (11.6-17.2)
[2016-09-04 06:19] VITALS: RESP 30
[2016-09-04 06:31] LABS: HEMO FLAGS AUTO DIFF
[2016-09-04 07:38] LABS: ALKALINE PHOSPHATASE 997 U/L (45-117); ALT (GPT) 2341 U/L (10-53); ANION GAP 17 MEQ/L (5-15); AST (GOT) 13675 U/L (15-37); BICARBONATE 15.2 MEQ/L (21.0-32.0); BLOOD UREA NITROGEN 39 MG/DL (7-18); CHLORIDE 108 MEQ/L (98-107); CREATINE KINASE 8335 U/L (26-192); GLOMERULAR FILTRATION RATE 26 ML/MIN (>89); SODIUM (NA) 140 MEQ/L (136-145); TOTAL BILIRUBIN ADULT 2.6 MG/DL (0.2-1.0)
[2016-09-04 07:42] LABS: POTASSIUM 6.9 MEQ/L (3.5-5.1)
[2016-09-04] MEDS ORDERED: glipiZIDE 5 MG TAB PO SCH (08:00)
--- NOTE | 2016-09-04 08:01 | HHI.HCPN ---
Call from Froilan RN in [facility] to report family desires transition to comfort with hospice. Spoke with granddaughter/HCS Natalie mireles telephone she confirms her wish to transition to comfort with hospice support. She hopes to bring her grandmother to be with her dying at the [facility] as she believes they are waiting to be together. Hospice order placed. Called hospice admissions to get nurse [facility] to admit pt. Called [facility] to reserve a bed and request she be placed in a room with her , they agreed. Will see pt and family when I arrive to hospital. . CORDELIA MATSON Sep 04, 2016 08:01
[2016-09-04 08:02] LABS: BANDS 6 % (0-6); CORRECTED NUCLEATED RBC 7 /100 WBC (0-0); METAMYELOCYTES 1 % (0-1); MYELOCYTES 3 % (0-0); NEUTROPHIL # MANUAL DIFF 12.2 TH/MM3 (1.8-7.7); POLYS (SEG NEUTROPHILS) 66 % (16-70); SCAN/DIFF FINAL DIFF MANUAL; WBC DIFF SAMPLE 100
[2016-09-04 08:03] LABS: CKMB 8.7 NG/ML (0.5-3.6)
[2016-09-04 08:04] LABS: PLATELET ESTIMATE SMEAR LOW (NORMAL)
[2016-09-04 08:05] LABS: ACANTHOCYTES OCC (NORMAL); KERATOCYTES OCC (NORMAL); PLATELET MORPHOLOGY ENLARGED (NORMAL)
[2016-09-04] MEDS ORDERED: LORazepam 2 MG/ML VIAL ONE (08:17)
[2016-09-04] MEDS ORDERED: LORazepam 2 MG/ML VIAL IV PRN (08:30)
[2016-09-04] MEDS ORDERED: MORPHINE SULFATE 4 MG/ML INJ IV PRN ×2 (08:30)
--- NOTE | 2016-09-04 08:32 | PD.ONC.PN ---
Subjective Subjective Remarks She is groaning in pain. Confused. Grandson and daughter in law at the bedside. Objective Data Date Time Temp Pulse Resp B/P Pulse Ox O2 Delivery O2 Flow Rate FiO2 09/04/16 06:19 30 09/04/16 06:00 96 09/04/16 04:00 84 09/04/16 04:00 97.6 84 29 139/62 87 09/04/16 02:00 79 09/04/16 00:00 98.2 78 26 140/65 94 09/04/16 00:00 78 09/03/16 22:00 75 09/03/16 21:40 99 Venturi Mask 6.00 50 09/03/16 20:00 72 09/03/16 20:00 97.6 72 28 120/53 100 09/03/16 18:00 77 24 128/57 95 Non-Rebreather 15 09/03/16 17:30 96 Non-Rebreather 15 09/03/16 17:00 74 25 115/56 100 BiPAP 100 09/03/16 16:13 66 24 116/65 100 BiPAP 100 09/03/16 15:10 67 25 112/59 100 BiPAP 100 09/03/16 15:00 100 BiPAP 100 09/03/16 15:00 100 100 09/03/16 14:50 68 28 106/60 95 Non-Rebreather 15 Automatic Cuff 09/03/16 14:00 78 25 109/52 94 Nasal Cannula 3 09/03/16 13:10 64 24 110/57 94 Nasal Cannula 2 09/03/16 11:31 100 24 189/79 95 09/03/16 10:00 96 22 179/79 94 Nasal Cannula 2 09/03/16 09:00 105 20 168/75 95 Nasal Cannula 2 09/04/16 09/04/16 09/04/16 07:00 15:00 23:00 Intake Total 1166 ml Balance 1166 ml Result Diagram: 09/04/16 0509 09/04/16 0509 Laboratory Results Laboratory Tests Test 09/03/16 09/03/16 09/03/16 09/04/16 10:30 14:10 18:52 05:09 Lactate Dehydrogenase 7972 U/L Tumor Marker Alpha Fetoprotein 2.3 NG/ML Carcinoembryonic Antigen 4.5 NG/ML CA 19-9 Antigen 218.3 U/ML CA 125 Antigen 104.0 U/ML Acetaminophen Level LESS THAN 2.0 MCG/ML Hepatitis A IgM Antibody NEGATIVE Hepatitis B Surface Antigen NEGATIVE Hepatitis B Core IgM Antibody NEGATIVE Hepatitis C Antibody NEGATIVE Lactic Acid Level 5.7 mmol/L Nasal Screen MRSA (PCR) NEGATIVE White Blood Count 16.0 TH/MM3 Red Blood Count 5.09 MIL/MM3 Hemoglobin 12.9 GM/DL Hematocrit 40.9 % Mean Corpuscular Volume 80.3 FL Mean Corpuscular Hemoglobin 25.4 PG Mean Corpuscular Hemoglobin 31.6 % Concent Red Cell Distribution Width 19.8 % Platelet Count 101 TH/MM3 Mean Platelet Volume 9.8 FL Neutrophils (%) (Auto) 72.1 % Lymphocytes (%) (Auto) 20.9 % Monocytes (%) (Auto) 6.2 % Eosinophils (%) (Auto) 0.6 % Basophils (%) (Auto) 0.2 % Neutrophils # (Auto) 11.5 TH/MM3 Lymphocytes # (Auto) 3.3 TH/MM3 Monocytes # (Auto) 1.0 TH/MM3 Eosinophils # (Auto) 0.1 TH/MM3 Basophils # (Auto) 0.0 TH/MM3 CBC Comment AUTO DIFF Differential Total Cells 100 Counted Neutrophils % (Manual) 66 % Band Neutrophils % 6 % Lymphocytes % 19 % Monocytes % 5 % Neutrophils # (Manual) 12.2 TH/MM3 Metamyelocytes 1 % Myelocytes 3 % Nucleated Red Blood Cells 7 /100 WBC Differential Comment FINAL DIFF MANUAL Platelet Estimate LOW Platelet Morphology Comment ENLARGED Acanthocytes OCC Keratocytes OCC Sodium Level 140 MEQ/L Potassium Level 6.9 MEQ/L Chloride Level 108 MEQ/L Carbon Dioxide Level 15.2 MEQ/L Anion Gap 17 MEQ/L Blood Urea Nitrogen 39 MG/DL Creatinine 1.83 MG/DL Estimat Glomerular Filtration 26 ML/MIN Rate Random Glucose 69 MG/DL Calcium Level 8.2 MG/DL Total Bilirubin 2.6 MG/DL Aspartate Amino Transf 49044 U/L (AST/SGOT) Alanine Aminotransferase 2341 U/L (ALT/SGPT) Alkaline Phosphatase 997 U/L Total Creatine Kinase 8335 U/L Creatine Kinase MB 8.7 NG/ML Creatine Kinase MB % 0.1 % Total Protein 5.8 GM/DL Albumin 2.3 GM/DL Culture Results Microbiology Date/Time Procedure Status Source Growth 09/03/16 08:00 Urine Culture Received Urine Catheterized Urine Pending 09/03/16 08:55 Aerobic Blood Culture Received Blood Peripheral Pending 09/03/16 08:55 Anaerobic Blood Culture Received Blood Peripheral Pending 09/03/16 09:00 Aerobic Blood Culture Received Blood Peripheral Pending 09/03/16 09:00 Anaerobic Blood Culture Received Blood Peripheral Pending Administered Medications Medications (Trade) Dose Ordered Sig/Chloe Route PRN Reason Start Time Stop Time Status Last Admin Dose Admin Sodium Chloride (NS 1000 ml Inj) 1,000 ml @ 150 mls/hr Q6H40M IV 09/03/16 09:52 09/04/16 00:16 IV Flush (NS Flush) 2 ml UNSCH PRN FLUSH FLUSH AFTER USING IV ACCESS 09/03/16 10:00 09/04/16 06:14 Ondansetron HCl (Zofran Inj) 4 mg Q6H PRN IVP NAUSEA OR VOMITING 09/03/16 12:00 09/03/16 13:18 Acetaminophen (Tylenol) 650 mg Q6H PRN PO PAIN SCALE 1 TO 2 09/03/16 10:00 09/04/16 03:05 Captopril (Capoten) 50 mg TIDAC PO 09/03/16 12:00 09/03/16 12:02 Gabapentin (Neurontin) 100 mg HS PO 09/03/16 21:00 09/03/16 20:38 Metoprolol Tartrate (Lopressor) 50 mg BID PO 09/03/16 10:00 09/03/16 12:10 Verapamil HCl 240 mg 240 mg BID PO 09/03/16 10:00 09/03/16 12:01 Piperacillin Sod/ Tazobactam Sod (Zosyn 3.375 Gm Premix) 50 ml @ 100 mls/hr Q8H IV 09/03/16 17:00 09/04/16 00:16 Miscellaneous Information Patient in critical care unit? Ass... [id number] XX 09/03/16 22:00 09/03/16 21:49 Chlorhexidine Gluconate (Chlorhexidine 2% Cloth) 3 pack DAILY@04 TOP 09/04/16 04:00 09/08/16 04:01 09/04/16 04:00 Morphine Sulfate (Morphine Inj) 2 mg Q2HR PRN IV PUSH pain 09/04/16 06:00 09/04/16 06:14 Objective Remarks GENERAL: Confused, groaning. SKIN: Warm and dry. HEAD: Normocephalic. EYES: No scleral icterus. No injection or drainage. NECK: Supple, trachea midline. No JVD or lymphadenopathy. LYMPHATIC: No adenopathy. CARDIOVASCULAR: Regular rate and rhythm without murmurs. RESPIRATORY: Breath sounds equal bilaterally. No accessory muscle use. GASTROINTESTINAL: Abdomen firm mass RUQ. EXTREMITIES: No cyanosis, or edema. MUSCULOSKELETAL: Adequate muscle tone. NEUROLOGICAL: moving all four extremities PSYCHIATRIC: Confused Assessment/Plan Assessment 1. Multiple liver masses with bone lesions most consistent with metastatic disease. She had presented with increased low back pain and abdominal pain. MRI of the spine showed diffuse abnormal bone marrow signal suspicious for infiltrative process. No clear compression fracture noted. The MRI also showed multiple liver lesions which is confirmed with ultrasound. The tumor marker CA 19-9 and CA-125 were elevated but nonspecific. I have had another discussion with the patient's grandson and daughter in law at the bedside. I went over the probable diagnosis of metastatic cancer. Their questions were answered. They do not want aggressive workup or biopsy. They want to keep her comfortable. Hospice has been consulted. RECOMMENDATIONS: 1. Hospice has been consulted for placement at [facility]. Manjit Razo MD Sep 04, 2016 08:31
[2016-09-04] MEDS ORDERED: PANTOPRAZOLE SOD 20 MG DELAYED RELEASE TAB PO SCH (09:00)
[2016-09-04 10:58] LABS: ANA SCREEN POS (NEG)
--- NOTE | 2016-09-04 13:04 | HHI.DS ---
Summary Note Date of : Sep 04, 2016 Time Of : 0837 Admission Date Sep 03, 2016 at 09:28 Admitting Diagnosis weakness Diagnosis at Time of : (1) Back pain ICD Code: M54.9 (2) Back pain with left-sided radiculopathy ICD Code: M54.10 (3) Back pain with right-sided radiculopathy ICD Code: M54.10 (4) Rhabdomyolysis ICD Code: M62.82 (5) Transaminitis ICD Code: R74.0 (6) Sepsis ICD Code: A41.9 Brief History 86 year-old female with a history of hypertension, diabetes type 2 and prior nasal basal cell carcinoma came to the ED for evaluation of an acute on worsening chronic back pain with bilateral radiculopathy however without any bladder or bowel dysfunction, despite patient having nausea and vomiting.. She rates the pain 10 out of 10 in intensity and for the past several days has been taking acetaminophen 2 tablets by mouth twice a day as a result of which patient now has elevated LFTs with T. Bili 1.1, AST 1489, ALT 544, Alk Phosph 798. Patient denies any history of alcohol abuse. she denies any GI bleed, hematochezia or melena CBC/BMP: 09/04/16 0509 09/04/16 0509 Significant Findings Laboratory Tests Test 09/03/16 09/03/16 09/03/16 09/03/16 06:25 08:00 10:30 14:10 White Blood Count 15.3 TH/MM3 (4.0-11.0) Red Blood Count 5.83 MIL/MM3 (4.00-5.30) Mean Corpuscular Volume 78.5 FL (80.0-100.0) Mean Corpuscular Hemoglobin 25.9 PG (27.0-34.0) Red Cell Distribution Width 19.3 % (11.6-17.2) Platelet Count 148 TH/MM3 (150-450) Neutrophils (%) (Auto) 75.9 % (16.0-70.0) Neutrophils # (Auto) 11.6 TH/MM3 (1.8-7.7) Band Neutrophils % 21 % (0-6) Neutrophils # (Manual) 11.3 TH/MM3 (1.8-7.7) Nucleated Red Blood Cells 2 /100 WBC (0-0) Acanthocytes OCC (NORMAL) Prothrombin Time 15.4 SEC (9.8-11.6) Carbon Dioxide Level 17.7 MEQ/L (21.0-32.0) Anion Gap 16 MEQ/L (5-15) Blood Urea Nitrogen 25 MG/DL (7-18) Total Bilirubin 1.1 MG/DL (0.2-1.0) Aspartate Amino Transf 1489 U/L (AST/SGOT) (15-37) Alanine Aminotransferase 544 U/L (10-53) (ALT/SGPT) Alkaline Phosphatase 798 U/L (45-117) Total Creatine Kinase 1697 U/L (26-192) Troponin I LESS THAN 0.02 NG/ML (0.02-0.05) Albumin 2.5 GM/DL (3.4-5.0) Urine Color DARK-YELLOW (YELLW/STRAW) Urine Turbidity HAZY (CLEAR) Urine Ketones 10 mg/dL (NEG) Urine Occult Blood MOD (NEG) Urine Bilirubin SMALL (NEG) Urine Urobilinogen 8.0 MG/DL (LESS THAN 2.0) Urine Bacteria MANY /hpf (NONE) Urine Mucus MOD /lpf (OCC) Lactate Dehydrogenase 7972 U/L (84-246) CA 19-9 Antigen 218.3 U/ML (0.0-35.0) CA 125 Antigen 104.0 U/ML (0.0-30.2) Acetaminophen Level LESS THAN 2.0 MCG/ML (10.0-30.0) Anti-Nuclear Antibody Screen POS (NEG) Lactic Acid Level 5.7 mmol/L (0.4-2.0) Test 09/04/16 05:09 White Blood Count 16.0 TH/MM3 (4.0-11.0) Mean Corpuscular Hemoglobin 25.4 PG (27.0-34.0) Mean Corpuscular Hemoglobin 31.6 % Concent (32.0-36.0) Red Cell Distribution Width 19.8 % (11.6-17.2) Platelet Count 101 TH/MM3 (150-450) Neutrophils (%) (Auto) 72.1 % (16.0-70.0) Neutrophils # (Auto) 11.5 TH/MM3 (1.8-7.7) Monocytes # (Auto) 1.0 TH/MM3 (0-0.9) Neutrophils # (Manual) 12.2 TH/MM3 (1.8-7.7) Myelocytes 3 % (0-0) Nucleated Red Blood Cells 7 /100 WBC (0-0) Platelet Estimate LOW (NORMAL) Platelet Morphology Comment ENLARGED (NORMAL) Acanthocytes OCC (NORMAL) Keratocytes OCC (NORMAL) Potassium Level 6.9 MEQ/L (3.5-5.1) Chloride Level 108 MEQ/L (98-107) Carbon Dioxide Level 15.2 MEQ/L (21.0-32.0) Anion Gap 17 MEQ/L (5-15) Blood Urea Nitrogen 39 MG/DL (7-18) Creatinine 1.83 MG/DL (0.50-1.00) Estimat Glomerular Filtration 26 ML/MIN (>89) Rate Random Glucose 69 MG/DL (74-106) Calcium Level 8.2 MG/DL (8.5-10.1) Total Bilirubin 2.6 MG/DL (0.2-1.0) Aspartate Amino Transf 17823 U/L (AST/SGOT) (15-37) Alanine Aminotransferase 2341 U/L (ALT/SGPT) (10-53) Alkaline Phosphatase 997 U/L (45-117) Total Creatine Kinase 8335 U/L (26-192) Creatine Kinase MB 8.7 NG/ML (0.5-3.6) Total Protein 5.8 GM/DL (6.4-8.2) Albumin 2.3 GM/DL (3.4-5.0) Hospital Course Patient was admitted and started on treatment for Acute on chronic back pain: Patient with abnormal spine lumbar MRI noted and reviewed by me with finding of lack of change on the T2 sequence suggests against an infiltrative process. 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 Therefore will check tumor markers. Will consult interventional radiology for possible CT guided biopsy. Check CT chest, CT abdomen/pelvic. We'll also consult Medical Oncology as patient with prior history of basal cell carcinoma and now possible metastasis so far with unknown origin. Palliative care medicine has been consulted. Pain management accordingly. PT consult to treat and eval Sepsis:Heart rate over 90, WBC > 55910, < 4000 or > 10% bands; will check lactic acid. Source likely UTI; status post vancomycin and Zosyn in ED, continue Zosyn UTI: Currently on Zosyn pending urine culture Transaminitis: Patient with abnormal Liver US. Gastroenterology has been consulted. Check hepatitis panel, tumor markers, GI labs. Monitor LFTs Rhabdomyolysis: Aggressive IV fluid resuscitations and monitor CK Hyperlipidemia: Hold statin Hypertension: Resume outpatient medications including captopril, Lopressor, verapamil Diabetes type 2: Hold oral hypoglycemic agent, start medium sliding scale insulin with fingerstick blood glucose monitoring. Check hemoglobin A1c DVT prophylaxis: Bilateral SCDs Joey Boyd MD Sep 04, 2016 13:04
--- NOTE | 2016-09-04 22:33 | EKG ---
Date Performed: 09/03/2016 Time Performed: 13:27:37 PTAGE: 86 years EKG: ACCELERATED JUNCTIONAL RHYTHM RIGHT BUNDLE BRANCH BLOCK LEFT ANTERIOR FASCICULAR BLOCK Comp ared to previous tracing, there is no longer evidence of discrete atrial activity. The QRS complex is largely unchanged. The EKG is most consistent with an accelerated junctional rhythm. Clinical corre lation and rhythm strip would be advised for specific confirmation. ABNORMAL ECG PREVIOUS TRACING : 09/03/2016 06.19 DOCTOR: Katie Box Interpretating Date/Time 09/04/2016 22:32:58
[2016-09-07 03:53] LABS: MITOCHONDRIAL ABS LESS THAN 20.0 U (())
== END 2016-09-04 08:37 | disposition expired | DRG 542 ==
LOC: NEPC 06:01 → NEDA 09:28 → NEDH 15:29 → HIME 18:12
PROVIDERS: ADMIT Hospitalist; ATTEND Hospitalist
DX: C79.51 Secondary malignant neoplasm of bone (principal); A41.9 Sepsis, unspecified organism; C78.7 Secondary malignant neoplasm of liver and intrahepatic bile duct; M62.82 Rhabdomyolysis; K76.0 Fatty (change of) liver, not elsewhere classified; N39.0 Urinary tract infection, site not specified; J98.11 Atelectasis; B17.9 Acute viral hepatitis, unspecified; C80.1 Malignant (primary) neoplasm, unspecified; E11.9 Type 2 diabetes mellitus without complications; I10 Essential (primary) hypertension; E78.00 Pure hypercholesterolemia, unspecified; M54.5 Low back pain; K21.9 Gastro-esophageal reflux disease without esophagitis; E78.5 Hyperlipidemia, unspecified; R11.2 Nausea with vomiting, unspecified; I70.0 Atherosclerosis of aorta; K57.30 Diverticulosis of large intestine without perforation or abscess without bleeding; D25.9 Leiomyoma of uterus, unspecified; F41.9 Anxiety disorder, unspecified; R59.1 Generalized enlarged lymph nodes; M51.16 Intervertebral disc disorders with radiculopathy, lumbar region; E04.9 Nontoxic goiter, unspecified; Z66 Do not resuscitate; Z51.5 Encounter for palliative care; G62.9 Polyneuropathy, unspecified; M19.90 Unspecified osteoarthritis, unspecified site; J44.9 Chronic obstructive pulmonary disease, unspecified; I25.10 Atherosclerotic heart disease of native coronary artery without angina pectoris; Z87.891 Personal history of nicotine dependence; Z80.6 Family history of leukemia; Z85.828 Personal history of other malignant neoplasm of skin; Z79.84 Long term (current) use of oral hypoglycemic drugs; G89.29 Other chronic pain
CPT/HCPCS: 71010; 71275; 72131; 72157; 72158; 74174; 76705; 80053; 80074; 80329; 81001; 82105; 82378; 82390; 82550; 82552; 82948; 83520; 83605; 83615; 83690; 83735; 84484; 85007; 85027; 85610; 85730; 86038; 86039; 86256; 86301; 86304; 86403; 87040; 87086; 87205; 87641; 93005; 94002; 96374; 96375; A9579; G0480; J2060; J2270; J2405; J2543; J3370; J7030; J7040; P9612; Q9967